=== PATIENT | female | born 1955 ===

== ENCOUNTER 2020-02-21 08:55 | Outpatient (CLI) | payer OTHER, SELFPAY ==
--- NOTE | ~2020-02-21 | DEXA_ITS ---
BMD(1) Young-Adult(2) Age-Matched(3) Region (g/cm2) T-score Z-score WHO Classification L1 1.193 0.4 1.6 Normal L2 1.005 -1.7 -0.5 Osteopenia L3 1.010 -1.7 -0.5 Osteopenia L4 0.893 -2.5 -1.3 Osteoporosis L1-L4 1.012 -1.5 -0.3 Osteopenia Trend: L1-L4 Change vs Change vs Measured Age BMD(1) Baseline Previous Date [age]) (g/cm2) (%) (%) 02[age]21/2020 [age] 1.012 12.2* 12.2* 12[birth year]29/2018 [age] 0.902 baseline - * - Indicates significant change based on 95% confidence interval. 1 - Statistically 68% of repeat scans fall within 1SD (+- 0.010 g/cm2 for AP Spine L1-L4) 2 - [place] (Combined [employer] (ages 20-30) / [employer] (ages 20-40)) AP Spine Reference Population (v112) 3 - Matched for Age, Weight (females 25-100 kg), Ethnic 11 - World Health Organization - Definition of Osteoporosis and Osteopenia for Women: Normal = T-score at or above -1.0 SD; Osteopenia = T-score between -1.0 and -2.5 SD; Osteoporosis = T-score at or below -2.5 SD; (WHO definitions only apply when a young healthy Women reference database is used to determine T-scores.) Printed: 02/21/2020 9:55:17 AM (13.60)76:3.00:50.00:12.0 0.00:12.36 0.60x1.05 22.4:%Fat=26.8% 0.00:0.00 0.00:0.00 Filename: [id number] Scan Mode: Standard;OneScan 37.0 Need [id number] BMD(1) Young-Adult(2,7) Age-Matched(3) Region (g/cm2) T-score Z-score WHO Classification Neck Left 0.689 -2.5 -1.3 Osteoporosis Right 0.652 -2.8 -1.6 Osteoporosis Mean 0.671 -2.6 -1.4 Osteoporosis Difference 0.037 -0.3 -0.3 - Total Left 0.770 -1.9 -1.0 Osteopenia Right 0.731 -2.2 -1.3 Osteopenia Mean 0.750 -2.0 -1.1 Osteopenia Difference 0.039 -0.3 -0.3 - Hip [place] Length Comparison (mm) (Right = 117.8 mm) (Mean = 106.6 mm) (Left = 119.3 mm) Trend: Total Mean Change vs Change vs Measured Age BMD(1) Baseline Previous Date (years) (g/cm2) (%) (%) 02/21/2020 64.5 0.750 -0.4 -0.4 12/29/2018 63.3 0.753 baseline - 1 - Statistically 68% of repeat scans fall within 1SD (+- 0.010 g/cm2 for DualFemur Total) 2 - [place] (Combined [employer]ES (ages 20-30) / [employer] (ages 20-40)) Femur Reference Population (v112) 3 - Matched for Age, Weight (females 25-100 kg), Ethnic 7 - [employer]emur Total T-score difference is 0.3. Asymmetry is None. 11 - World Health Organization - Definition of Osteoporosis and Osteopenia for Women: Normal = T-score at or above -1.0 SD; Osteopenia = T-score between -1.0 and -2.5 SD; Osteoporosis = T-score at or below -2.5 SD; (WHO definitions only apply when a young healthy Women reference database is used to determine T-scores.) Printed: 02/21/2020 9:55:17 AM (13.60); Filename: [id number].dfx; Right Femur; 18.0:%Fat=31.4%; Neck Angle (deg)= 60; Scan Mode: Standard 37.0 uGy; Left Femur; 18.4:%Fat=34.4%; Neck Angle (deg)= 54; Scan Mode: Standard 37.0 uGy [employer] [id number] Dear Karla Lou, Your patient Maria De Jesus Shields completed a BMD test on 02/21/2020 using the [employer] DXA System (analysis version: 13.60) manufactured by [employer]. The following summarizes the results of our evaluation. PATIENT BIOGRAPHICAL: Name: Maria De Jesus Shields
--- NOTE | ~2020-02-21 | MM_ITS ---
EXAMINATION: MM screening dez BI w ruby HISTORY: Screening mammogram TECHNIQUE: Craniocaudal and mediolateral oblique 3-D tomosynthesis images were obtained and synthetic 2-D images were generated. CAD analysis was submitted and interpreted. COMPARISON: 02/15/2019 bilateral diagnostic digital mammogram and bilateral breast ultrasound 02/05/2019, 01/31/2018, 01/27/2017 bilateral digital screening mammogram examinations BREAST PARENCHYMAL COMPOSITION: There are scattered areas of fibroglandular density. FINDINGS: There is no evidence of suspicious mass, calcification, or architectural distortion to sugg est malignancy in either breast. There has been no suspicious interval change. IMPRESSION: 1. No mammographic evidence of malignancy. 2. Recommend routine screening mammography in one year. BI-RADS Category 1: Negative Reviewed, dictated and finalized at location A.
[2020-02-21 10:20] LABS: Alanine Aminotransferase 24 U/L (14-59); Albumin Level 3.9 g/dL (3.4-5.0); Alkaline Phosphatase 89 U/L (46-116); Anion Gap 12.3 mmol/L (7-16); Aspartate Amino Transferase 21 U/L (15-37); Bilirubin,Total 0.3 mg/dL (0.00-1.00); Blood Urea Nitrogen 22 mg/dL (7-18); Carbon Dioxide 31 mmol/L (21-32); Chloride 103 mmol/L (98-108); Estimated Glomerular Filt Rate > 60; Folic Acid 17.4 ng/mL (8.6->20); Free T3 2.34 pg/mL (2.18-3.98); Free T4 Free Thyroxine 0.98 ng/dL (0.76-1.46); Glucose 94 mg/dL (70-99); Osmolality Calculated 297 mOsm/kg (285-295); Phosphorus 2.9 mg/dL (2.6-4.7); Potassium 4.3 mmol/L (3.5-5.1); Sodium 142 mmol/L (136-145); Thyroid Stimulating Hormone 3.33 uIU/mL (0.36-3.74); Total Protein 7.5 g/dL (6.4-8.2); Vitamin B12 410 pg/mL (193-986)
[2020-02-24 05:55] LABS: Thyroid Peroxidase Antibodies <1 IU/mL (<9)
[2020-02-25 11:49] LABS: Parathyroid Intact 88 pg/mL (14-64)
[2020-02-26 20:08] LABS: Vitamin D 25 Hydroxy 58 ng/mL (30-100)
== END 2020-02-21 08:56 | disposition home or self-care (01) ==
LOC: CHSIMG 08:57
PROVIDERS: PCP Nurse Practitioner Family; Visit Provider Internal Medicine Endocrinology, Diabetes & Metabolism
DX: Z12.31 Encounter for screening mammogram for malignant neoplasm of breast (principal); M81.0 Age-related osteoporosis without current pathological fracture; R53.83 Other fatigue
CPT/HCPCS: 36415; 77063; 77067; 77080; 80053; 82306; 82607; 82746; 83970; 84100; 84439; 84443; 84481; 86376

== ENCOUNTER 2020-05-21 06:59 | Outpatient (CLI) | payer OTHER, SELFPAY ==
--- NOTE | ~2020-05-21 | US_ITS ---
US thyroid INDICATION: Nontoxic goiter TECHNIQUE: Real-time sonographic images of the thyroid gland were obtained. COMPARISON: No prior studies for comparison. FINDINGS: The right thyroid lobe measures 4 x 1.1 x 1.2 cm. The left thyroid lobe measures 3 x 1 x 1 cm. There is normal echotexture and echogenicity throughout the thyroid gland. There are small hypoe choic masses of the right thyroid lobe, largest being mixed solid and cystic, hypoechoic, wider than tall, smoothly marginated with macrocalcifications, TR 4, likely benign measuring 5 x 3 x 3 mm. Ping l vascular flow is present. IMPRESSION: 1. Small right thyroid masses, largest measuring up to 5 mm, TR 4, likely benign. Reviewed, dictated and finalized at location A. IMPRESSION: 1. Small right thyroid masses, largest measuring up to 5 mm, TR 4, likely kobi gn.
[2020-05-21 08:31] LABS: Alanine Aminotransferase 23 U/L (14-59); Alkaline Phosphatase 93 U/L (46-116); Anion Gap 5 mmol/L (8-16); Aspartate Amino Transferase 15 U/L (15-37); Bilirubin,Total 0.4 mg/dL (0.00-1.00); Blood Urea Nitrogen 22 mg/dL (7-18); Calcium 9.1 mg/dL (8.5-10.1); Carbon Dioxide 31 mmol/L (21-32); Chloride 105 mmol/L (98-108); Estimated Glomerular Filt Rate > 60; Free T3 2.67 pg/mL (2.18-3.98); Free T4 Free Thyroxine 0.87 ng/dL (0.76-1.46); Glucose 100 mg/dL (70-99); Osmolality Calculated 295 mOsm/kg (285-295); Phosphorus 3.6 mg/dL (2.6-4.7); Potassium 4.2 mmol/L (3.5-5.1); Sodium 141 mmol/L (136-145); Thyroid Stimulating Hormone 3.66 uIU/mL (0.36-3.74); Total Protein 7.6 g/dL (6.4-8.2)
[2020-05-24 16:33] LABS: Parathyroid Intact 81 pg/mL (14-64)
[2020-05-26 05:39] LABS: Thyroid Peroxidase Antibodies <1 IU/mL (<9)
[2020-05-28 21:45] LABS: Vitamin D 25 Hydroxy 67 ng/mL (30-100)
== END 2020-05-21 07:00 | disposition home or self-care (01) ==
PROVIDERS: PCP Nurse Practitioner Family; Visit Provider Internal Medicine Endocrinology, Diabetes & Metabolism
DX: E04.9 Nontoxic goiter, unspecified (principal); M81.0 Age-related osteoporosis without current pathological fracture
CPT/HCPCS: 36415; 76536; 80053; 82306; 83970; 84100; 84439; 84443; 84481; 86376

== ENCOUNTER 2020-10-31 07:30 | Outpatient (CLI) | payer OTHER, SELFPAY ==
[2020-10-31 08:27] LABS: Alanine Aminotransferase 34 U/L (14-59); Albumin Level 3.6 g/dL (3.4-5.0); Alkaline Phosphatase 86 U/L (46-116); Anion Gap 7 mmol/L (8-16); Aspartate Amino Transferase 19 U/L (15-37); Bilirubin,Total 0.4 mg/dL (0.00-1.00); Blood Urea Nitrogen 23 mg/dL (7-18); Calcium 9.1 mg/dL (8.5-10.1); Carbon Dioxide 30 mmol/L (21-32); Chloride 105 mmol/L (98-108); Estimated Glomerular Filt Rate > 60; Free T3 2.35 pg/mL (2.18-3.98); Free T4 Free Thyroxine 0.85 ng/dL (0.76-1.46); Glucose 95 mg/dL (70-99); Osmolality Calculated 297 mOsm/kg (285-295); Phosphorus 3.3 mg/dL (2.6-4.7); Potassium 4.1 mmol/L (3.5-5.1); Sodium 142 mmol/L (136-145); Total Protein 7.1 g/dL (6.4-8.2)
[2020-11-02 22:28] LABS: Vitamin D 25 Hydroxy 48 ng/mL (30-100)
[2020-11-04 14:05] LABS: Thyroid Peroxidase Antibodies <1 IU/mL (<9); Thyroid Stimulating Immunoglob <89 % baseline (<140)
[2020-11-05 12:11] LABS: Parathyroid Intact 81 pg/mL (14-64)
== END 2020-10-31 07:31 | disposition home or self-care (01) ==
LOC: CHSLAB 07:32
PROVIDERS: PCP Nurse Practitioner Family; Visit Provider Internal Medicine Endocrinology, Diabetes & Metabolism
DX: E06.3 Autoimmune thyroiditis (principal); M81.0 Age-related osteoporosis without current pathological fracture
CPT/HCPCS: 36415; 80053; 82306; 83970; 84100; 84439; 84443; 84445; 84481; 86376

== ENCOUNTER 2020-12-26 08:08 | Outpatient (CLI) | payer OTHER, SELFPAY ==
[2020-12-26 09:06] LABS: Free T4 Free Thyroxine 0.98 ng/dL (0.76-1.46); Thyroid Stimulating Hormone 3.09 uIU/mL (0.36-3.74)
[2020-12-26 09:30] LABS: Free T3 2.29 pg/mL (2.18-3.98)
== END 2020-12-26 08:09 | disposition home or self-care (01) ==
LOC: CHSLAB 08:10
PROVIDERS: PCP Nurse Practitioner Family; Visit Provider Internal Medicine Endocrinology, Diabetes & Metabolism
DX: E06.3 Autoimmune thyroiditis (principal)
CPT/HCPCS: 36415; 84439; 84443; 84481

== ENCOUNTER 2021-01-14 09:06 | Emergency (ER) | payer OTHER, SELFPAY ==
--- NOTE | ~2021-01-14 | XR_ITS ---
EXAMINATION: XR elbow LT 2V DATE: 01/14/2021 09:58 INDICATION: Left elbow pain. Fall. TECHNIQUE: 2 views of left elbow were obtained. COMPARISON: None. FINDINGS: Bone alignment is normal. No fracture. Joint spaces are well maintained. There is no elbow joint effusion. IMPRESSION: 1. Normal left elbow. Reviewed, dictated and finalized at location A. IMPRESSION: 1. Normal left elbow.
[2021-01-14 09:15] VITALS: BP 141/69; PULSE 74; RESP 14; TEMP 36.3; O2SAT 97
--- NOTE | 2021-01-14 09:44 | ED.GENADULT ---
HPI - General Adult General Chief complaint: Fall Stated complaint: Fell hit chin and hands Head hurts Time Seen by Provider: 01/14/21 09:08 Source: patient Mode of arrival: ambulatory Limitations: no limitations History of Present Illness HPI narrative: Maria De Jesus is a 65F with a PMH of osteoporosis presented to the ER after a fall while on her morning walk. She was about 2 miles into the walk when she fell and hit her left elbow and chin. She then got up and walked home. She did not lose consciousness, or have any nausea or vomiting. She has no neck pain. Her only concern is the pain and bruise in her left elbow and 1cm chin laceration. Related Data Home Medications Medication Instructions Recorded Confirmed levothyroxine 25 mcg PO DAILY 01/14/21 01/14/21 mirabegron [Myrbetriq] 25 mg PO HS 01/14/21 01/14/21 Allergies Allergy/AdvReac Type Severity Reaction Status Date / Time No Known Allergies Allergy Verified 12/05/19 10:55 Review of Systems Constitutional: Constitutional: Reports no additional constitutional complaints Eyes: Eyes: Reports no additional eye complaints ENT: Reports system reviewed and no additional complaints, except as documented Cardiovascular: Cardiovascular: Reports no additional cardiovascular complaints Respiratory: Respiratory: Reports no additional respiratory complaints Gastrointestinal: Gastrointestinal: Reports no additional gastrointestinal complaints Genitourinary: Genitourinary: Reports no additional female genitourinary complaints Musculoskeletal: Musculoskeletal: Reports as per HPI Integumentary/Breasts: Skin/Breast: Reports as per HPI Neurologic: Reports system reviewed and no additional complaints, except as documented Psychiatric: Psychiatric: Reports no additional psychiatric complaints [facility] Past Medical History Medical History 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 Able to touch her chin to each shoulder, fully flex and extend the neck without any pain Chest: Chest palpation & inspection: normal inspection of the chest Resp: Effort & Inspection: normal respiratory effort Cardio: Rate: regular rate Skin: General skin exam: normal color Rashes: no rashes Other: 1cm linear laceration on the inferior portion of the chin Neuro: General: patient oriented x3 and moves all extremities Extrem: General: normal to inspection Psych: Appearance: grossly normal and well kempt Mental Status: mental status grossly normal Affect: normal affect Attitude: cooperative Thought content: Yes Normal thought content present Course Course Emergency Course: Maria De Jesus declined pain meds. Radiographs were ordered. EXAMINATION: XR elbow LT 2V DATE: 01/14/2021 09:58 INDICATION: Left elbow pain. Fall. TECHNIQUE: 2 views of left elbow were obtained. COMPARISON: None. FINDINGS: Bone alignment is normal. No fracture. Joint spaces are well maintained. There is no elbow joint effusion. IMPRESSION: 1. Normal left elbow. Vital Signs Vital signs: Vital Signs Temperature 97.4 F L 01/14/21 09:15 Pulse Rate 74 01/14/21 09:15 Respiratory Rate 14 01/14/21 09:15 Blood Pressure 141/69 H 01/14/21 09:15 Pulse Oximetry 97 01/14/21 09:15 Temperature 97.4 F L 01/14/21 09:15 Pulse Rate 74 01/14/21 09:15 Respiratory Rate 14 01/14/21 09:15 Blood Pressure 141/69 H 05
--- NOTE | 2021-01-14 10:24 | PC.NURSE ---
PT DENIES PAIN MEDICATION, STATES SHE TOOK 2 TYLENOL BEFORE LEAVING HOME FOR THE ED
[2021-01-14 10:33] VITALS: PULSE 70; RESP 15; O2SAT 100
== END 2021-01-14 10:38 | disposition home or self-care (01) ==
PROVIDERS: Emergency Provider Family Medicine; PCP Nurse Practitioner Family
DX: S01.81XA Laceration without foreign body of other part of head, initial encounter (principal); S50.02XA Contusion of left elbow, initial encounter; W19.XXXA Unspecified fall, initial encounter
CPT/HCPCS: 12011; 73070; 99282; 99283

== ENCOUNTER 2021-01-20 14:02 | Outpatient (CLI) | payer OTHER, SELFPAY ==
--- NOTE | ~2021-01-20 | XR_ITS ---
XR wrist RT 2V 01/20/2021 14:16 Indication: Right wrist pain after recent fall Procedure: 2 views right wrist Comparison: No prior studies for comparison. Findings: Osteopenia. No fracture, subluxation or dislocation. There is anatomic alignment. No foreig n bodies. Impression: 1: No acute bone or joint abnormality. Reviewed, dictated and finalized at location A. Impression: 1: No acute bone or joint abnormality.
== END 2021-01-20 14:03 | disposition home or self-care (01) ==
LOC: CHSIMG 14:04
PROVIDERS: PCP Nurse Practitioner Family; Visit Provider Nurse Practitioner Family
DX: M25.531 Pain in right wrist (principal)
CPT/HCPCS: 73100

== ENCOUNTER 2021-02-23 07:47 | Outpatient (CLI) | payer OTHER, SELFPAY ==
--- NOTE | ~2021-02-23 | MM_ITS ---
EXAMINATION: MM screening dez BI w ruby HISTORY: Screening TECHNIQUE: Craniocaudal and mediolateral oblique 3-D tomosynthesis images were obtained and synthetic 2-D images were generated. CAD analysis was submitted and interpreted. COMPARISON: Comparison to multiple prior studies sequentially, with oldest reviewed study dated 08/2016. BREAST PARENCHYMAL COMPOSITION: There are scattered areas of fibroglandular density. FINDINGS: The right breast is stable without evidence for malignancy. There are developing asymmetrie s in the upper outer quadrant of the left breast. IMPRESSION: 1. Developing left breast asymmetries, upper outer quadrant. 2. Additional mammographic views and possible breast ultrasound are recommended. BI-RADS Category 0: Incomplete: Needs additional imaging evaluation. Reviewed, dictated and finalized at location A. IMPRESSION: 1. Developing left breast asymmetries, upper outer quadrant. 2. Additional mammographic views and possible breast ultrasound are recommended . BI-RADS Category 0: Incomplete: Needs additional imaging evaluation.
== END 2021-02-23 07:48 | disposition home or self-care (01) ==
LOC: CHSIMG 07:48
PROVIDERS: PCP Nurse Practitioner Family; Visit Provider Nurse Practitioner Family
DX: Z12.31 Encounter for screening mammogram for malignant neoplasm of breast (principal)
CPT/HCPCS: 77063; 77067

== ENCOUNTER 2021-02-26 08:27 | Outpatient (CLI) | payer OTHER, SELFPAY ==
--- NOTE | ~2021-02-26 | MMUS_ITS ---
EXAMINATION: MM diagnostic dez LT w ruby, US breast LT complete HISTORY: Follow-up left breast asymmetries. TECHNIQUE: Additional 3-D tomosynthesis images of the left breast were performed and synthetic 2-D im ages were generated. CAD analysis was submitted and interpreted. High resolution complete left breast ultrasound was performed. COMPARISON: 02/23/2021 BREAST PARENCHYMAL COMPOSITION: Breast composed of scattered areas of fibroglandular density. FINDINGS: MAMMOGRAPHIC FINDINGS: Left breast asymmetries are less apparent with spot compression or mediolateral views. No discrete ma ss or architectural distortion is identified. ULTRASOUND: There are multiple cysts of the left breast, largest measuring 4 mm. No suspicious masses to suggest malignancy. IMPRESSION: 1. No evidence for malignancy in the left breast. 2. Routine yearly screening mammogram and regular clinical breast examination are recommended. BI-RADS Category 2: Benign finding(s). Reviewed, dictated and finalized at location A. IMPRESSION: 1. No evidence for malignancy in the left breast. 2. Routine yearly screening mammogram and regular clinical breast examination a re recommended. BI-RADS Category 2: Benign finding(s).
== END 2021-02-26 08:28 | disposition home or self-care (01) ==
LOC: CHSIMG 08:28
PROVIDERS: PCP Nurse Practitioner Family; Visit Provider Nurse Practitioner Family
DX: R92.8 Other abnormal and inconclusive findings on diagnostic imaging of breast (principal)
CPT/HCPCS: 76641; 77061; 77065; G0279

== ENCOUNTER 2021-04-10 07:14 | Outpatient (CLI) | payer OTHER, SELFPAY ==
[2021-04-10 08:48] LABS: Alanine Aminotransferase 28 U/L (14-59); Albumin Level 3.7 g/dL (3.4-5.0); Alkaline Phosphatase 85 U/L (46-116); Anion Gap 9 mmol/L (8-16); Aspartate Amino Transferase 19 U/L (15-37); Bilirubin,Total 0.4 mg/dL (0.00-1.00); Blood Urea Nitrogen 24 mg/dL (7-18); Calcium 8.8 mg/dL (8.5-10.1); Carbon Dioxide 28 mmol/L (21-32); Chloride 107 mmol/L (98-108); Estimated Glomerular Filt Rate > 60; Free T3 2.34 pg/mL (2.18-3.98); Free T4 Free Thyroxine 0.96 ng/dL (0.76-1.46); Glucose 99 mg/dL (70-99); Osmolality Calculated 302 mOsm/kg (285-295); Phosphorus 3.2 mg/dL (2.6-4.7); Potassium 4.3 mmol/L (3.5-5.1); Sodium 144 mmol/L (136-145); Total Protein 7.3 g/dL (6.4-8.2); Vitamin B12 587 pg/mL (193-986)
[2021-04-10 08:50] LABS: Folic Acid > 20.0 ng/mL (8.6->20)
[2021-04-10 09:09] LABS: Thyroid Stimulating Hormone 3.11 uIU/mL (0.36-3.74)
[2021-04-13 14:47] LABS: Vitamin D 25 Hydroxy 80 ng/mL (30-100)
[2021-04-14 00:58] LABS: Thyroid Peroxidase Antibodies <1 IU/mL (<9)
== END 2021-04-10 07:15 | disposition home or self-care (01) ==
LOC: CHSLAB 07:16
PROVIDERS: PCP Nurse Practitioner Family; Visit Provider Internal Medicine Endocrinology, Diabetes & Metabolism
DX: M81.0 Age-related osteoporosis without current pathological fracture (principal); E06.3 Autoimmune thyroiditis
CPT/HCPCS: 36415; 80053; 82306; 82607; 82746; 84100; 84439; 84443; 84481; 86376

== ENCOUNTER 2021-06-29 14:33 | Emergency (ER) | payer OTHER, SELFPAY ==
--- NOTE | ~2021-06-29 | CT_ITS ---
EXAMINATION: CT brain wo con EXAM DATE: 06/29/2021 15:36 INDICATION: Head injury fall today, nasal lacs. TECHNIQUE: Spiral CT of the head was performed without contrast. Axial, coronal and sagittal images were reviewed. The dose-length product (DLP) for this examination was 605.33 mGy-cm. The exposure w as tailored according to patient size, and iterative reconstruction (ASIR) was used as additional dos e reduction technique. There is no prior study for comparison. FINDINGS: Nasal septal and bone fractures. Overlying soft tissue swelling. Laceration and frontal sca lp contusion/hematoma. No underlying calvarial fracture. No extra-axial collections, acute intracrani al hemorrhage, obstructive hydrocephalus, brain mass or evidence of acute infarction. Mild microangio randolph and moderate cerebral atrophy. IMPRESSION: 1. No acute intracranial findings. 2. Nasal bone and septal fractures. 3. Frontal contusion, hematoma, laceration. Reviewed, dictated and finalized at location A.
--- NOTE | ~2021-06-29 | CT_ITS ---
EXAMINATION: CT facial & cervical spine wo EXAM DATE: 06/29/2021 15:37 INDICATION: Facial and neck injury fall today, nasal lacs, no neck pain, in c-collar. TECHNIQUE: Spiral CT of the facial bones was acquired in the axial plane. Coronal reformatted images were also reviewed. Spiral CT of the cervical spine was performed without contrast. Axial images we re reviewed. Coronal and sagittal reformatted images were also reviewed. The dose-length product (DL P) for this examination was 605.33 mGy-cm. The exposure was tailored according to patient size, and iterative reconstruction (ASIR) was used as additional dose reduction technique. There is no prior s tudy for comparison. FINDINGS: FACIAL CT: There are bilateral nasal bone fractures with minimal leftward displacement of the nasal septal complex. Several nasal septal fractures, some buckling. Small amount of blood within the ethmo id sinuses. The maxillary, sphenoid, frontal sinuses are well aerated. There is swelling overlying th e nasal bones, nasal bridge and frontal region of the scalp with small foci of gas indicating lacerat ion. Mastoid air cells are well aerated. The orbits, globes and extraocular muscles are unremarkable . 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 CERVICAL CT: There is no evidence of acute cervical fracture. The odontoid process is intact. Pre-d ens space is normal. Prevertebral soft tissue is normal. There are no soft tissue abnormalities hermelinda ntified. There is no disc space widening or traumatic vertebral body subluxation suspected. Vertebr al body and disc heights are well-maintained. There is advanced left-sided cervical facet arthropat hy. IMPRESSION: 1. Acute nasal septal, bilateral nasal bone fractures with minimal leftward displacement. 2. Nose, frontal scalp contusion, hematoma, laceration. 3. Cervical spondylosis without fracture. Reviewed, dictated and finalized at location A. IMPRESSION: 1. Acute nasal septal, bilateral nasal bone fractures with minimal leftward di splacement. 2. Nose, frontal scalp contusion, hematoma, laceration. 3. Cervical spondylosis without fracture.
--- NOTE | ~2021-06-29 | XR_ITS ---
EXAMINATION: XR knee LT 2V DATE: 06/29/2021 15:38 INDICATION: Left knee pain TECHNIQUE: Two views of the left knee were obtained. COMPARISON: None. FINDINGS: Alignment is normal. No fracture or osteochondral lesion. Joint spaces are normal with no e rosions. No joint effusion/synovitis. Soft tissues are unremarkable. IMPRESSION: 1. No acute osseous abnormality. Reviewed, dictated and finalized at location B.
[2021-06-29 14:40] VITALS: BP 160/110; PULSE 99; RESP 16; TEMP 36.1; O2SAT 99
--- NOTE | 2021-06-29 14:46 | ED.FALL ---
HPI - Fall General Chief Complaint: Fall Stated Complaint: AMB Source: patient, family and EMS Mode of arrival: EMS Limitations: no limitations History of Present Illness HPI Narrative: this is a 65-year-old female that presents after she tripped outdoors on sidewalk and fell injuring her the bridge of her nose and and frontal scalp area, there is some some significant swelling of the nasal bones with some no loss of consciousness no headache no blurry vision no nausea or vomiting, the patient tripped and fell outdoors from a standing position does have some nasal bone pain currently no bleeding no loss of consciousness. complaint: fall Onset (ago): hour(s) Fall from: standing Fall witnessed: yes, by family Place fall occurred: street Loss of consciousness: none Prolonged down time: no Context: tripped/slipped Related Data Home Medications Medication Instructions Recorded Confirmed levothyroxine 25 mcg PO DAILY 01/14/21 01/14/21 mirabegron [Myrbetriq] 25 mg PO HS 01/14/21 01/14/21 Allergies Allergy/AdvReac Type Severity Reaction Status Date / Time No Known Allergies Allergy Verified 01/20/21 13:29 Review of Systems Review of Systems: All systems reviewed & are unremarkable except as noted in HPI and below PMFSH Past Medical History Medical History 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 There is abrasion to the bridge of the nose that was bleeding and is controlled currently Eyes: Conjunctivae: conjunctivae normal Pupils: Equal, round and reactive pupils present EOM: EOMs intact bilaterally Direct Ophthalmoscopy: no photophobia Neck: Neck: normal visual inspection, no lymphadenopathy and no meningeal signs Chest: Chest palpation & inspection: normal inspection of the chest Resp: Effort & Inspection: normal respiratory effort Auscultation: clear to auscultation bilaterally Cardio: Rate: regular rate Rhythm: regular rhythm GI: Auscultation: normal bowel sounds : General: Yes no CVA tenderness Urinary Catheter: Urinary Catheter: patent and draining Skin: Other: abrasion to the bridge of her nose, with abrasions to the right palmar surface of her hand and left knee Neuro: General: patient oriented x3, moves all extremities, no meningeal signs, no focal motor deficits and CN's II-XI intact bilaterally Extrem: General: normal to inspection and no pedal edema Psych: Mental Status: mental status grossly normal Affect: normal affect Course Course Emergency Course: patient received 60 IM Toradol and updated with her vaccine for tetanus, CT scan and blood work were reviewed with patient and family, the patient did have a nasal bone fractures with a septal fracture and current pain is well controlled. Will be sending antibiotic to her pharmacy for the nasal bone fracture, and advised to follow-up with primary care physician for referral to ENT within a week. Critical Care Time Critical Care Time Critical Care Time: No Discharge Plan Discharge Clinical Impression: Abrasion Closed fracture nasal bone Qualifiers: Encounter type: initial encounter Qualified Code(s): S02.2XXA - Fracture of nasal bones, initial encounter for closed fracture Patient Disposition: Home, Self-Care Condition: Stable Instructions: Antibiotic Form, Nasal Fracture (ED), Skin Avulsion (ED) Additional Instructions: take medicine as prescribed, follow-up with primary care azucena
[2021-06-29] MEDS: KETOROLAC (*BKC) 60 MG/2 ML VIAL IM (14:53)
--- NOTE | 2021-06-29 14:56 | PC.NURSE ---
Lab and x-ray notified of orders in.
[2021-06-29 15:27] LABS: Alanine Aminotransferase 30 U/L (14-59); Albumin Level 3.8 g/dL (3.4-5.0); Alkaline Phosphatase 99 U/L (46-116); Anion Gap 9 mmol/L (8-16); Aspartate Amino Transferase 20 U/L (15-37); Bilirubin,Total 0.3 mg/dL (0.00-1.00); Blood Urea Nitrogen 20 mg/dL (7-18); Calcium 9.7 mg/dL (8.5-10.1); Carbon Dioxide 31 mmol/L (21-32); Chloride 104 mmol/L (98-108); Creatine Kinase 187 U/L (26-192); Estimated CRCL calculation 48 ml/min; Estimated Glomerular Filt Rate 60; Glucose 125 mg/dL (70-99); Osmolality Calculated 301 mOsm/kg (285-295); Potassium 3.5 mmol/L (3.5-5.1); Sodium 144 mmol/L (136-145)
--- NOTE | 2021-06-29 15:51 | PC.NURSE ---
Per monet Elmore to remove c-collar.
[2021-06-29] MEDS: TETANUS,DIPHTHERIA,AC PERTUSSIS ADULT 0.5 ML (ADACEL) IM (16:02)
[2021-06-29 16:03] VITALS: BP 148/72; PULSE 76; RESP 16; O2SAT 98
== END 2021-06-29 16:01 | disposition home or self-care (01) ==
PROVIDERS: Emergency Provider Emergency Medicine; PCP Nurse Practitioner Family
DX: S02.2XXA Fracture of nasal bones, initial encounter for closed fracture (principal); W19.XXXA Unspecified fall, initial encounter
CPT/HCPCS: 36415; 70450; 70486; 72125; 73560; 80053; 82550; 90471; 90715; 96372; 99283; J1885; L0150

== ENCOUNTER 2021-09-26 07:27 | Outpatient (CLI) | payer MEDICARE, SELFPAY ==
[2021-09-26 09:03] LABS: Alanine Aminotransferase 31 U/L (14-59); Albumin Level 3.6 g/dL (3.4-5.0); Alkaline Phosphatase 92 U/L (46-116); Anion Gap 8 mmol/L (8-16); Aspartate Amino Transferase 22 U/L (15-37); Bilirubin,Total 0.4 mg/dL (0.00-1.00); Blood Urea Nitrogen 19 mg/dL (7-18); Carbon Dioxide 31 mmol/L (21-32); Chloride 104 mmol/L (98-108); Estimated Glomerular Filt Rate > 60; Free T4 Free Thyroxine 0.93 ng/dL (0.76-1.46); Glucose 100 mg/dL (70-99); Osmolality Calculated 298 mOsm/kg (285-295); Phosphorus 3.2 mg/dL (2.6-4.7); Potassium 4.2 mmol/L (3.5-5.1); Sodium 143 mmol/L (136-145); Thyroid Stimulating Hormone 3.75 uIU/mL (0.36-3.74); Total Protein 7.3 g/dL (6.4-8.2); Vitamin B12 646 pg/mL (193-986)
[2021-09-26 09:09] LABS: Folic Acid > 20.0 ng/mL (8.6->20)
[2021-09-29 14:15] LABS: Vitamin D 25 Hydroxy 93 ng/mL (30-100)
[2021-09-30 01:18] LABS: Thyroid Peroxidase Antibodies <1 IU/mL (<9)
[2021-09-30 13:32] LABS: Parathyroid Intact 49 pg/mL (14-64)
== END 2021-09-26 07:28 | disposition home or self-care (01) ==
LOC: CHSLAB 07:32
PROVIDERS: PCP Nurse Practitioner Family; Visit Provider Internal Medicine Endocrinology, Diabetes & Metabolism
DX: M81.0 Age-related osteoporosis without current pathological fracture (principal); E06.3 Autoimmune thyroiditis
CPT/HCPCS: 36415; 80053; 82306; 82607; 82746; 83970; 84100; 84439; 84443; 84481; 86376

== ENCOUNTER 2021-11-30 15:31 | Outpatient (CLI) | payer MEDICARE, SELFPAY ==
--- NOTE | ~2021-11-30 | XR_ITS ---
EXAMINATION: XR finger 5th LT min 2V DATE: 11/30/2021 15:48 INDICATION: Pain and bruising and swelling at the left fifth finger post injury TECHNIQUE: Dorsal palmar, lateral and 2 oblique views of the left fifth digit were obtained COMPARISON: Left wrist radiograph dated 12/08/2012 FINDINGS: Subtle linear lucency consistent with nondisplaced transverse fracture across the mid diaphysis of th e left fifth middle phalanx. Chronic nonunited ulnar styloid avulsion fracture. Small metallic densit y projecting over the scaphoid fossa the distal radius which may relate to internal fixation of a pre viously seen distal radial fracture which is not included within the [id number]. Joint spaces are normal. Mild soft tissue swelling about the proximal to mid left fifth digit. Diffuse osteopenia. IMPRESSION: 1. Nondisplaced diaphyseal fracture of the left fifth middle phalanx. Reviewed, dictated and finalized at location B.
== END 2021-11-30 15:32 | disposition home or self-care (01) ==
LOC: CHSIMG 15:33
PROVIDERS: PCP Nurse Practitioner Family; Visit Provider Nurse Practitioner Family
DX: S69.92XA Unspecified injury of left wrist, hand and finger(s), initial encounter (principal)
CPT/HCPCS: 73140

== ENCOUNTER 2022-01-14 07:19 | Outpatient (CLI) | payer MEDICARE, SELFPAY ==
[2022-01-14 08:39] LABS: Alanine Aminotransferase 25 U/L (14-59); Albumin Level 3.6 g/dL (3.4-5.0); Alkaline Phosphatase 86 U/L (46-116); Anion Gap 6 mmol/L (8-16); Aspartate Amino Transferase 18 U/L (15-37); Bilirubin,Total 0.4 mg/dL (0.00-1.00); Blood Urea Nitrogen 24 mg/dL (7-18); Calcium 8.8 mg/dL (8.5-10.1); Carbon Dioxide 30 mmol/L (21-32); Chloride 105 mmol/L (98-108); Estimated Glomerular Filt Rate > 60; Free T3 2.51 pg/mL (2.18-3.98); Free T4 Free Thyroxine 0.94 ng/dL (0.76-1.46); Glucose 105 mg/dL (70-99); Osmolality Calculated 296 mOsm/kg (285-295); Potassium 4.1 mmol/L (3.5-5.1); Sodium 141 mmol/L (136-145); Total Protein 7.5 g/dL (6.4-8.2); Vitamin B12 455 pg/mL (193-986)
[2022-01-14 08:43] LABS: Folic Acid > 20.0 ng/mL (8.6->20)
[2022-01-17 04:45] LABS: Thyroid Peroxidase Antibodies <1 IU/mL (<9)
[2022-01-18 13:54] LABS: Parathyroid Intact 68 pg/mL (14-64)
[2022-01-19 20:08] LABS: Vitamin D 25 Hydroxy 111 ng/mL (30-100)
== END 2022-01-14 07:20 | disposition home or self-care (01) ==
LOC: CHSLAB 07:22
PROVIDERS: PCP Nurse Practitioner Family; Visit Provider Internal Medicine Endocrinology, Diabetes & Metabolism
DX: M81.0 Age-related osteoporosis without current pathological fracture (principal); E06.3 Autoimmune thyroiditis
CPT/HCPCS: 36415; 80053; 82306; 82607; 82746; 83970; 84439; 84443; 84481; 86376

== ENCOUNTER 2022-02-22 12:22 | Outpatient (CLI) | payer MEDICARE, SELFPAY ==
--- NOTE | ~2022-02-22 | DEXA_ITS ---
Bone Density Report Name: NAREN LOPEZ Age: 66 Sex: Female Ethnicity: White Date of : 1955 Indication: postmenopausal; screening for osteoporosis; parental hip fracture; height loss; prior fracture; hysterectomy; Referring Provider: Carmine, Karla Temple Study: Bone densitometry was performed. Exam Date: February 22, 2022 Accession number: [id number] Bone Density: Region BMD T-score Z-score Classification AP Spine(L2, L3, L4) 0.772 -2.8 -0.9 Osteoporosis Femoral Neck (Left) 0.556 -2.6 -1.1 Osteoporosis Total Hip (Left) 0.737 -1.7 -0.4 Osteopenia Femoral Neck (Right) 0.538 -2.8 -1.3 Osteoporosis Total Hip (Right) 0.730 -1.7 -0.5 Osteopenia Femoral Neck Mean 0.547 -2.7 -1.2 Osteoporosis Total Hip Mean 0.734 -1.7 -0.5 Osteopenia World Health Organization criteria for BMD impression classify patients as: Normal (T-score at or above -1.0), Osteopenia (T-score between -1.0 and -2.5), or Osteoporosis (T-score at or below -2.5). 10-year Fracture Risk: FRAX not reported because: Some T-score for Spine Total or Hip Total or Femoral Neck at or below -2.5 Treated for osteoporosis Clinical Information Provided by Patient: Has had a low trauma fracture Parent has had a hip fracture Is being treated for osteoporosis Has used the following medications: Actonel (i.e. risedronate), Vitamin D Has the following medical conditions: Hysterectomy Patient maximum height was 65 No regular weight bearing exercise Does not regularly consume dairy products Drinks caffeinated beverages Onset of menses at age 16 Number of children 3 Impression: The patient has established osteoporosis, based on the Total Spine T-score and the existence of a prior fracture. The patient has risk factors, including: parental hip fracture, previous fracture. Discussion: It is important to ask patients whether they are taking their medications and to encourage continued and appropriate compliance with their osteoporosis therapies to reduce fracture risk. It is also important to review their risk factors and encourage appropriate calcium and vitamin D intakes, exercise, fall prevention and other lifestyle measures. Follow-Up: Consider a repeat BMD and Vertebral Fracture Assessment (VFA) exam in 2 years or sooner if medically necessary, to reassess this patient's status. Reported by: Dr. Jones Ledezma on 02/22/2022 12:50:00 PM. Reviewed, dictated and finalized at location A. [facility]
== END 2022-02-22 12:23 | disposition home or self-care (01) ==
PROVIDERS: PCP Nurse Practitioner Family; Visit Provider Internal Medicine Endocrinology, Diabetes & Metabolism
DX: M81.0 Age-related osteoporosis without current pathological fracture (principal); M54.2 Cervicalgia; M54.50 Low back pain, unspecified; E55.9 Vitamin D deficiency, unspecified; Z00.00 Encounter for general adult medical examination without abnormal findings
CPT/HCPCS: 77080

== ENCOUNTER 2022-03-03 08:38 | Outpatient (CLI) | payer MEDICARE, SELFPAY ==
--- NOTE | ~2022-03-03 | MM_ITS ---
EXAMINATION: MM screening [facility] BI w ruby HISTORY: Screening TECHNIQUE: Craniocaudal and mediolateral oblique 3-D tomosynthesis images were obtained and synthetic 2-D images were generated. CAD analysis was submitted and interpreted. COMPARISON: Comparison to multiple prior studies sequentially, with oldest reviewed study dated 12/2017. BREAST PARENCHYMAL COMPOSITION: There are scattered areas of fibroglandular density. FINDINGS: Stable asymmetries in the upper outer quadrant of the left breast, corresponding to benign cysts seen on prior examination. There is no evidence of suspicious mass, calcification, or devops architect ural distortion to suggest malignancy in either breast. There has been no suspicious interval change. IMPRESSION: 1. No mammographic evidence of malignancy. 2. Recommend routine screening mammography in one year. BI-RADS Category 2: Benign finding(s). Reviewed, dictated and finalized at location A.
== END 2022-03-03 08:39 | disposition home or self-care (01) ==
LOC: CHSIMG 08:39
PROVIDERS: PCP Nurse Practitioner Family; Visit Provider Nurse Practitioner Family
DX: Z12.31 Encounter for screening mammogram for malignant neoplasm of breast (principal)
CPT/HCPCS: 77063; 77067

== ENCOUNTER 2022-05-15 07:38 | Outpatient (CLI) | payer MEDICARE, SELFPAY ==
[2022-05-15 08:00] LABS: Hemoglobin A1C 6.3 % (<5.7)
[2022-05-15 08:43] LABS: Alanine Aminotransferase 26 U/L (14-59); Albumin Level 3.8 g/dL (3.4-5.0); Alkaline Phosphatase 83 U/L (46-116); Anion Gap 8 mmol/L (8-16); Aspartate Amino Transferase 20 U/L (15-37); Bilirubin,Total 0.5 mg/dL (0.00-1.00); Blood Urea Nitrogen 25 mg/dL (7-18); Carbon Dioxide 28 mmol/L (21-32); Chloride 104 mmol/L (98-108); Estimated Glomerular Filt Rate > 60; Free T3 2.36 pg/mL (2.18-3.98); Free T4 Free Thyroxine 0.93 ng/dL (0.76-1.46); Glucose 98 mg/dL (70-99); Osmolality Calculated 294 mOsm/kg (285-295); Phosphorus 3.4 mg/dL (2.6-4.7); Potassium 4.1 mmol/L (3.5-5.1); Sodium 140 mmol/L (136-145); Thyroid Stimulating Hormone 2.09 uIU/mL (0.36-3.74); Total Protein 7.1 g/dL (6.4-8.2)
[2022-05-18 01:58] LABS: Insulin Level Total 2.6 uIU/mL (<=19.6); Thyroid Peroxidase Antibodies <1 IU/mL (<9)
[2022-05-18 21:55] LABS: Parathyroid Intact 71 pg/mL (14-64)
[2022-05-19 17:17] LABS: Vitamin D 25 Hydroxy 103 ng/mL (30-100)
== END 2022-05-15 07:39 | disposition home or self-care (01) ==
LOC: CHSLAB 07:40
PROVIDERS: PCP Nurse Practitioner Family; Visit Provider Internal Medicine Endocrinology, Diabetes & Metabolism
DX: M81.0 Age-related osteoporosis without current pathological fracture (principal); E06.3 Autoimmune thyroiditis; R73.01 Impaired fasting glucose
CPT/HCPCS: 36415; 80053; 82306; 83036; 83525; 83970; 84100; 84439; 84443; 84481; 86376

== ENCOUNTER 2022-06-11 10:15 | Outpatient (CLI) | payer MEDICARE, SELFPAY ==
--- NOTE | ~2022-06-11 | XR_ITS ---
EXAMINATION: XR shoulder LT min 2V INDICATION: Left shoulder pain TECHNIQUE: Four views of the left shoulder are submitted. COMPARISON: None FINDINGS: Normal alignment. No fracture. There is mild osteoarthritis of the acromioclavicular and gl enohumeral joints. Soft tissues are unremarkable. IMPRESSION: 1. No acute osseous abnormality. Reviewed, dictated and finalized at location F.
== END 2022-06-11 10:16 | disposition home or self-care (01) ==
LOC: CHSIMG 10:17
PROVIDERS: PCP Nurse Practitioner Family; Visit Provider Nurse Practitioner Family
DX: M25.512 Pain in left shoulder (principal)
CPT/HCPCS: 73030

== ENCOUNTER 2022-12-03 07:19 | Outpatient (CLI) | payer MEDICARE, SELFPAY ==
[2022-12-03 08:07] LABS: Hemoglobin A1C 6.1 % (<5.7)
[2022-12-03 08:23] LABS: Alanine Aminotransferase 28 U/L (14-59); Albumin Level 3.7 g/dL (3.4-5.0); Alkaline Phosphatase 83 U/L (46-116); Anion Gap 8 mmol/L (8-16); Aspartate Amino Transferase 21 U/L (15-37); Bilirubin,Total 0.5 mg/dL (0.00-1.00); Blood Urea Nitrogen 20 mg/dL (7-18); Calcium 9.1 mg/dL (8.5-10.1); Carbon Dioxide 33 mmol/L (21-32); Chloride 104 mmol/L (98-108); Estimated Glomerular Filt Rate > 60; Free T4 Free Thyroxine 0.96 ng/dL (0.76-1.46); Glucose 98 mg/dL (70-99); Osmolality Calculated 302 mOsm/kg (285-295); Phosphorus 3.6 mg/dL (2.6-4.7); Potassium 3.9 mmol/L (3.5-5.1); Sodium 145 mmol/L (136-145); Thyroid Stimulating Hormone 3.46 uIU/mL (0.36-3.74); Total Protein 7.8 g/dL (6.4-8.2)
[2022-12-04 06:42] LABS: Free T3 2.67 pg/mL (2.18-3.98)
[2022-12-07 13:16] LABS: Insulin Level Total 2.9 uIU/mL (<=19.6)
[2022-12-07 19:25] LABS: Vitamin D 25 Hydroxy 91 ng/mL (30-100)
[2022-12-08 16:09] LABS: Parathyroid Intact 68 pg/mL (14-64)
== END 2022-12-03 07:20 | disposition home or self-care (01) ==
PROVIDERS: PCP Nurse Practitioner Family; Visit Provider Internal Medicine Endocrinology, Diabetes & Metabolism
DX: R73.01 Impaired fasting glucose (principal); E06.3 Autoimmune thyroiditis; M81.0 Age-related osteoporosis without current pathological fracture
CPT/HCPCS: 36415; 80053; 82306; 83036; 83525; 83970; 84100; 84439; 84443; 84481

== ENCOUNTER 2023-02-26 07:25 | Outpatient (CLI) | payer MEDICARE, SELFPAY ==
[2023-02-26 08:41] LABS: Alanine Aminotransferase 27 U/L (14-59); Albumin Level 3.6 g/dL (3.4-5.0); Alkaline Phosphatase 78 U/L (46-116); Anion Gap 6 mmol/L (8-16); Aspartate Amino Transferase 17 U/L (15-37); Bilirubin,Total 0.4 mg/dL (0.00-1.00); Blood Urea Nitrogen 24 mg/dL (7-18); Calcium 8.9 mg/dL (8.5-10.1); Carbon Dioxide 30 mmol/L (21-32); Chloride 104 mmol/L (98-108); Estimated Glomerular Filt Rate > 60; Free T3 2.36 pg/mL (2.18-3.98); Free T4 Free Thyroxine 0.93 ng/dL (0.76-1.46); Glucose 98 mg/dL (70-99); Osmolality Calculated 294 mOsm/kg (285-295); Phosphorus 3.3 mg/dL (2.6-4.7); Potassium 4.3 mmol/L (3.5-5.1); Sodium 140 mmol/L (136-145); Thyroid Stimulating Hormone 3.66 uIU/mL (0.36-3.74); Total Protein 7.1 g/dL (6.4-8.2)
[2023-03-02 16:33] LABS: Insulin Level Total 3.1 uIU/mL (<=19.6)
[2023-03-02 17:54] LABS: Parathyroid Intact 77 pg/mL (14-64)
[2023-03-02 19:53] LABS: Vitamin D 25 Hydroxy 90 ng/mL (30-100)
== END 2023-02-26 07:26 | disposition home or self-care (01) ==
LOC: CHSLAB 07:27
PROVIDERS: PCP Nurse Practitioner Family; Visit Provider Internal Medicine Endocrinology, Diabetes & Metabolism
DX: M81.0 Age-related osteoporosis without current pathological fracture (principal); E06.3 Autoimmune thyroiditis; R73.01 Impaired fasting glucose
CPT/HCPCS: 36415; 80053; 82306; 83036; 83525; 83970; 84100; 84439; 84443; 84481

== ENCOUNTER 2023-03-07 07:50 | Outpatient (CLI) | payer MEDICARE, SELFPAY ==
--- NOTE | ~2023-03-07 | MM_ITS ---
EXAMINATION: MM screening [facility] BI w ruby HISTORY: Screening mammogram TECHNIQUE: Craniocaudal and mediolateral oblique 3-D tomosynthesis images were obtained and synthetic 2-D images were generated. CAD analysis was submitted and interpreted. COMPARISON: 03/03/2022, 02/26/2021, 02/15/2021, 02/21/2020 BREAST PARENCHYMAL COMPOSITION:The breasts are heterogeneously dense, which may obscure small masses. FINDINGS: No suspicious mass, calcification, or architectural distortion are identified in either padmini ast to suggest malignancy. There has been no suspicious interval change. IMPRESSION: No mammographic evidence of malignancy. Recommend routine screening mammography in one year. BI-RADS Category 1: Negative Reviewed, dictated and finalized at location .
== END 2023-03-07 07:51 | disposition home or self-care (01) ==
LOC: CHSIMG 07:53
PROVIDERS: PCP Nurse Practitioner Family; Visit Provider Nurse Practitioner Family
DX: Z12.31 Encounter for screening mammogram for malignant neoplasm of breast (principal)
CPT/HCPCS: 77063; 77067

== ENCOUNTER 2023-05-28 09:14 | Outpatient (CLI) | payer MEDICARE, SELFPAY ==
[2023-05-28 10:29] LABS: Alanine Aminotransferase 25 U/L (14-59); Albumin Level 3.8 g/dL (3.4-5.0); Alkaline Phosphatase 76 U/L (46-116); Anion Gap 9 mmol/L (8-16); Aspartate Amino Transferase 20 U/L (15-37); Bilirubin,Total 0.5 mg/dL (0.00-1.00); Blood Urea Nitrogen 19 mg/dL (7-18); Calcium 9.4 mg/dL (8.5-10.1); Carbon Dioxide 28 mmol/L (21-32); Chloride 106 mmol/L (98-108); Estimated Glomerular Filt Rate > 60; Free T4 Free Thyroxine 1.06 ng/dL (0.76-1.46); Glucose 99 mg/dL (70-99); Osmolality Calculated 298 mOsm/kg (285-295); Potassium 4.2 mmol/L (3.5-5.1); Sodium 143 mmol/L (136-145); Total Protein 7.1 g/dL (6.4-8.2)
[2023-06-01 19:45] LABS: Parathyroid Intact 77 pg/mL (14-64)
[2023-06-04 22:50] LABS: Vitamin D 25 Hydroxy 87 ng/mL (30-100)
== END 2023-05-28 09:15 | disposition home or self-care (01) ==
LOC: CHSLAB 09:17
PROVIDERS: PCP Nurse Practitioner Family; Visit Provider Internal Medicine
DX: E06.3 Autoimmune thyroiditis (principal); M81.0 Age-related osteoporosis without current pathological fracture
CPT/HCPCS: 36415; 80053; 82306; 83970; 84439; 84443

== ENCOUNTER 2023-05-31 07:54 | Outpatient (CLI) | payer MEDICARE, SELFPAY ==
[2023-05-31 08:23] LABS: Creatinine 24 Hour Urine 0.63 g/24 hr (0.60-1.80); Total Volume 24 Hour Urine 2750 ml
[2023-06-08 07:59] LABS: Total Volume 2750 mL; Urine Calcium 7.9 mg/dL
== END 2023-05-31 07:55 | disposition home or self-care (01) ==
LOC: CHSLAB 07:57
PROVIDERS: PCP Nurse Practitioner Family; Visit Provider Internal Medicine
DX: E06.3 Autoimmune thyroiditis (principal); M81.0 Age-related osteoporosis without current pathological fracture
CPT/HCPCS: 81050; 82340; 82570

== ENCOUNTER 2023-06-01 09:33 | Outpatient (CLI) | payer MEDICARE, SELFPAY ==
--- NOTE | ~2023-06-01 | US_ITS ---
Thyroid ultrasound. Clinical History: Autoimmune thyroiditis COMPARISON: 05/21/2020 Findings: Real-time sonography of the thyroid gland was performed. The right lobe measures 3.6 x 1.2 x 1.5 cm. The left lobe measures 2.8 x 1.0 x 1.2 cm. The isthmus is 3 mm in AP diameter. There is a 5 mm cystic nodule in the right mid lobe with small hyperechoic colloid components. Impression: Small cystic nodule in the right middle lobe is essentially unchanged from prior exam.. Reviewed, dictated and finalized at location M. Impression: Small cystic nodule in the right middle lobe is essentially unchanged from prio r exam..
--- NOTE | ~2023-06-01 | DEXA_ITS ---
Bone Density Report Name: NAREN LOPEZ Age: 67 Sex: Female Ethnicity: White Date of : 1955 Indication: postmenopausal; screening for osteoporosis; parental hip fracture; height loss; prior fracture; hysterectomy; Referring Provider: ARNAV MALIK Study: Bone densitometry was performed. Exam Date: June 01, 2023 Accession number: [id number] Bone Density: Region BMD T-score Z-score Classification AP Spine(L2, L3, L4) 0.861 -2.0 0.0 Osteopenia Femoral Neck (Left) 0.598 -2.3 -0.7 Osteopenia Total Hip (Left) 0.796 -1.2 0.1 Osteopenia Femoral Neck (Right) 0.541 -2.8 -1.2 Osteoporosis Total Hip (Right) 0.741 -1.6 -0.3 Osteopenia Femoral Neck Mean 0.569 -2.5 -0.9 Osteoporosis Total Hip Mean 0.768 -1.4 -0.1 Osteopenia World Health Organization criteria for BMD impression classify patients as: Normal (T-score at or above -1.0), Osteopenia (T-score between -1.0 and -2.5), or Osteoporosis (T-score at or below -2.5). 10-year Fracture Risk: FRAX not reported because: Some T-score for Spine Total or Hip Total or Femoral Neck at or below -2.5 Treated for osteoporosis Clinical Information Provided by Patient: Has had a low trauma fracture Parent has had a hip fracture Is being treated for osteoporosis Has used the following medications: Actonel (i.e. risedronate), Vitamin D, Calcium Has the following medical conditions: Hysterectomy Patient maximum height was 65 Menopause Age: 51 No regular weight bearing exercise Does not regularly consume dairy products Drinks caffeinated beverages Onset of menses at age 16 Number of children 3 Impression: The patient has established osteoporosis, based on the Right Femoral Neck T-score and the existence of a prior fracture. The patient has risk factors, including: parental hip fracture, previous fracture. Discussion: It is important to ask patients whether they are taking their medications and to encourage continued and appropriate compliance with their osteoporosis therapies to reduce fracture risk. It is also important to review their risk factors and encourage appropriate calcium and vitamin D intakes, exercise, fall prevention and other lifestyle measures. Follow-Up: Consider a repeat BMD and Vertebral Fracture Assessment (VFA) exam in 2 years or sooner if medically necessary, to reassess this patient's status. Reported by: Dr. Tony Bush on 06/01/2023 10:00:00 AM. Reviewed, dictated and finalized at location A.
== END 2023-06-01 09:34 | disposition home or self-care (01) ==
LOC: CHSIMG 09:35
PROVIDERS: PCP Nurse Practitioner Family; Visit Provider Internal Medicine
DX: M81.0 Age-related osteoporosis without current pathological fracture (principal); E06.3 Autoimmune thyroiditis; M85.89 Other specified disorders of bone density and structure, multiple sites; E04.1 Nontoxic single thyroid nodule
CPT/HCPCS: 76536; 77080

== ENCOUNTER 2023-12-09 12:02 | Outpatient (CLI) | payer MEDICARE, SELFPAY ==
[2023-12-09 14:37] LABS: Hemoglobin A1C 5.8 % (<5.7)
[2023-12-09 14:53] LABS: Free T4 Free Thyroxine 1.18 ng/mL (0.78-2.19)
== END 2023-12-09 12:03 | disposition home or self-care (01) ==
PROVIDERS: Internal Medicine; PCP Nurse Practitioner Family; Visit Provider Internal Medicine Hematology & Oncology
DX: R73.03 Prediabetes (principal); E03.9 Hypothyroidism, unspecified; E06.3 Autoimmune thyroiditis
CPT/HCPCS: 36415; 83036; 84439; 84443

== ENCOUNTER 2024-02-21 07:55 | Outpatient (RCR) | payer MEDICARE, SELFPAY ==
--- NOTE | 2024-02-21 09:27 | OPREHPOC ---
Outpatient Therapy Plan of Care This is a Multidisciplinary Plan of Care that may contain components documented by all disciplines (PT, OT, and ST.) PT Problem 1 PT Problem #1 Knowledge Deficit PT Goal 1 Goal 1. independent and compliant with HEP and pre- position change routine Target Visit 4 PT Problem 2 PT Problem #2 Impaired Balance PT Goal 1 Goal 1. tinetti to display moderate fall risk or less 2. TUG to be completed without symptoms of dizziness in 15 seconds or less 3. patient to complete 5 x sit to stand test without symptoms of dizziness in less than 15 seconds Target Visit 9 PT Problem 3 PT Problem #3 Impaired Functional Mobil PT Goal 1 Goal 1. DHI to display 10% or less functional deficits 2. patient to complete 6 minute walk test with cane or AD with improved mechanics for 700ft or more 3. patient to report no more than 1 episode of dizziness in the last week. Target Visit 9
--- NOTE | 2024-02-21 09:27 | PTOPEVAL1 ---
Assessment and note entered by JT File, PT Evaluation Information Assessment Status Evaluation Diagnosis dizziness and giddiness Onset 02/15/24 Subjective Information patient reports when she wakes up she gets up real fast and she is dizzy. she reports she also recently noticed it at the dentist and found that when coming up from laying on her back she was really dizzy. 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 she reports she also has some symptoms when laying down and moving her head to the side quickly. she reports her symptoms will last more than 1 minute . she reports she is taking metformin and levothyroxine. she reports she does not take baby aspirin, and does not take any blood pressure meds . she also does not take any cholesterol medication. she reports she does have a cane, but she uses is infrequently. she reports when her symptoms come on it feels like the room is spinning around her. she reports she does not feel like she is going to pass out. Reported Pain Level Pain Score 0: Self Report Assessment PT Clinical Summary mrs. shannon is a 68 yo woman who presents to skilled PT services for dizziness with position changes. she reports symptoms when transitioning from supine to sitting and standing. she is negative for BPPV testing and POTS testing today. however, she nearly displays positive testing for orthostatic hypotension. in addition, she displays abnormal gait mechanics and a high fall risk. she would benefit from continued skilled PT services to address her orthostasis issues, balance deficits, and improved her safety with position changes and standing/ambulation to prevent future falls/injuries. Plan of Care Interventions Gait Training,Neuro Re-education,Patient/Caregiver Educati,Therapeutic Activities,Therapeutic Exercise PT Services Indicated Yes Treatment Frequency and 3x weekly for 9 visits Duration These treatments will address the objective and functional deficits as defined above. The patient will be advanced safely and appropriately in order for the patient to progress towards his/her prior level of function. Additional exercises will be introduced and as well as a comprehensive home exercise program upon discharge, if needed, ?to ensure carryover of functional gains achieved in the clinic. This treatment plan has been reviewed and agreement upon by the patient.
== END 2024-03-21 10:09 | disposition home or self-care (01) ==
LOC: CHSPT 07:55
PROVIDERS: Visit Provider Nurse Practitioner Family
DX: R42 Dizziness and giddiness (principal)
CPT/HCPCS: 97110; 97112; 97161; 97530

== ENCOUNTER 2024-03-19 12:53 | Outpatient (CLI) | payer MEDICARE, SELFPAY ==
--- NOTE | ~2024-03-19 | MM_ITS ---
EXAMINATION: MM screening [facility] BI w ruby HISTORY: Screening TECHNIQUE: Craniocaudal and mediolateral oblique 3-D tomosynthesis images were obtained and synthetic 2-D images were generated. CAD analysis was submitted and interpreted. COMPARISON: No prior mammogram is available for comparison at this institution. BREAST PARENCHYMAL COMPOSITION: FINDINGS: Stable asymmetries in the upper aspect of the left breast on MLO view. There is no evidence of suspicious mass, calcification, or architectural distortion to suggest malignancy in either breas t. There has been no suspicious interval change. IMPRESSION: 1. No mammographic evidence of malignancy. 2. Recommend routine screening mammography in one year. BI-RADS Category 1: Negative Reviewed, dictated and finalized at location B.
== END 2024-03-19 12:54 | disposition home or self-care (01) ==
LOC: CHSIMG 12:54
PROVIDERS: PCP Nurse Practitioner Family; Visit Provider Nurse Practitioner Family
DX: Z12.31 Encounter for screening mammogram for malignant neoplasm of breast (principal)
CPT/HCPCS: 77063; 77067

== ENCOUNTER 2024-04-07 09:03 | Emergency (ER) | payer MEDICARE, SELFPAY ==
[2024-04-07 09:05] VITALS: BP 128/68; PULSE 64; RESP 20; TEMP 37.1; O2SAT 98
--- NOTE | 2024-04-07 09:13 | ED.ANIMALBIT ---
HPI - Animal Bite General Chief Complaint: Animal Bite Stated Complaint: dog bite Time Seen by Provider: 04/07/24 09:12 Source: patient Mode of arrival: ambulatory Limitations: no limitations History of Present Illness HPI narrative: 68 YEARS OLD WHITE FEMALE CAME TO THE EMERGENCY ROOM WITH A LITTLE ABRASION AT THE BACK OF HER RIGHT LOWER LEG POSSIBLE DOG RELATED. PATIENT IS NOT SURE IF SHE GOT BITTEN BY THE DOG OR GET SCRATCH BY SOMETHING. UNKNOWN LAST TETANUS SHOT, NO OTHER INJURIES, NO PAIN. Related Data Home Medications Medication Instructions Recorded Confirmed mirabegron 25 mg tablet,extended 25 mg PO HS 01/14/21 10/10/23 release 24 hr (Myrbetriq) multivitamin 1 tablet PO DAILY 07/01/21 10/10/23 denosumab 60 mg/mL subcutaneous 60 mg subcut [id number] 05/26/23 10/10/23 syringe (Prolia) calcium 1200 BYIAUTH 09/28/23 10/10/23 cholecalciferol (vitamin D3) 25 25 mcg PO DAILY 09/28/23 10/10/23 mcg (1,000 unit) capsule cranberry gummies BYIAUTH 09/28/23 10/10/23 melatonin PO 09/28/23 10/10/23 [id number] 5 mg-zeaxanth cap PO 09/28/23 10/10/23 1 mg-bilberry 7.5 mg-herbal capsule (Macular Health Formula) Allergies Allergy/AdvReac Type Severity Reaction Status Date / Time Darvocet A500 Allergy Intermediate Unknown Uncoded 03/29/24 12:57 Review of Systems Review of Systems: All systems reviewed & are unremarkable except as noted in HPI and below PMFSH Past Medical History Medical History 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 Anxiety Hx of cervical cancer 1997 Osteoporosis Prediabetes Surgical History Surgical History Hx of hysterectomy 12/25/1997 Family History Family History Father Acute myocardial infarction Mother Familial Alzheimer's disease of late onset Social History Social History Smoking status: Never smoker Alcohol intake: never Substance use: never Do You Feel Safe in your Home?: Yes Lack of Transportation: No Lack of Food: Never True Current Housing: Decline to Answer Concerned About Future Housing: Decline to Answer Difficulty Paying Gas/Electric Bills: No Difficulty Paying for Meds: No Currently Unemployed: Decline to Answer Education: High School Diploma/GED Difficulty w/ Childcare or Family Care: No Exam Narrative: GENERAL APPEARANCE: WELL-DEVELOPED, WELL-NOURISHED SKIN: NORMAL COLOR , 2 MM ABRASION AT THE BACK OF THE RIGHT FOOT, NO ACTIVE BLEEDING. VASCULAR: NORMAL PERIPHERAL PULSES, NORMAL CAPILLARY REFILL. MUSCULOSKELETAL: NORMAL RANGE OF MOTION, NONTENDER BACK NEUROLOGIC: ALERT AND ORIENTED ?3, AOC AIRSPACE CONTROL OFFICER IS NORMAL TESTED, NO GROSS MOTOR DEFICIT MDM - Animal Bite MDM Narrative Medical decision making narrative: PATIENT WAS INTERACTING WITH 2 DOGS A BARKING AT HER. LATER NOTICED LITTLE ABRASION AT THE BACK OF THE RIGHT FOOT NOT SURE IS A BITE OR SOMETHING ELSE PHYSICAL EXAMINATION SHOWED ABRASION MORE LIKELY, ADACEL WAS GIVEN, WASH WITH WARM WATER AND SOAP, TOPICAL NEOSPORIN. DISCHARGE THE PT WAS DISCHARGED TO HOME.THE PT,S CONDITION UPON DISCHARGE WAS FAIR,EDUCATION WAS PROVIDED TO THE PT IN REFERENCE TO THE FINAL IMPRESSION,DISCHARGE STUDY RESULTS,TREATMENT,PROGNOSIS AND NEED FOR FOLLOW UP . Critical Care Time Critical Care Time Critical Care Time: No Discharge Plan Discharge Clinical Impression: Abrasion hip/leg Patient Disposition: Home, Self-Care Condition: Stable Instructions: Abrasion (ED) Additional I
[2024-04-07] MEDS: TETANUS,DIPHTHERIA,AC PERTUSSIS ADULT 0.5 ML (ADACEL) IM (09:29)
== END 2024-04-07 09:40 | disposition home or self-care (01) ==
PROVIDERS: Emergency Provider Emergency Medicine
DX: S80.811A Abrasion, right lower leg, initial encounter (principal); Z23 Encounter for immunization; X58.XXXA Exposure to other specified factors, initial encounter
CPT/HCPCS: 90471; 90715; 99282

== ENCOUNTER 2024-08-31 08:49 | Outpatient (CLI) | payer MEDICARE, SELFPAY ==
[2024-08-31 10:01] LABS: Alanine Aminotransferase 30 U/L (14-59); Albumin Level 3.7 g/dL (3.4-5.0); Alkaline Phosphatase 93 U/L (46-116); Anion Gap 7 mmol/L (4-12); Aspartate Amino Transferase 21 U/L (15-37); Bilirubin,Total 0.5 mg/dL (0.00-1.00); Blood Urea Nitrogen 25 mg/dL (7-18); Calcium 9.1 mg/dL (8.5-10.1); Carbon Dioxide 31 mmol/L (21-32); Chloride 104 mmol/L (98-108); Estimated Glomerular Filt Rate > 60; Free T4 Free Thyroxine 0.85 ng/dL (0.76-1.46); Glucose 96 mg/dL (70-99); Osmolality Calculated 298 mOsm/kg (285-295); Potassium 4.2 mmol/L (3.5-5.1); Sodium 142 mmol/L (136-145); Thyroid Stimulating Hormone 3.66 uIU/mL (0.36-3.74); Total Protein 7.1 g/dL (6.4-8.2)
[2024-09-01 11:24] LABS: Parathyroid Intact 56 pg/mL (16-77)
== END 2024-08-31 08:50 | disposition home or self-care (01) ==
LOC: CHSLAB 08:51
PROVIDERS: PCP Nurse Practitioner Family; Visit Provider Internal Medicine
DX: E03.9 Hypothyroidism, unspecified (principal); E06.3 Autoimmune thyroiditis; R73.03 Prediabetes; E04.1 Nontoxic single thyroid nodule
CPT/HCPCS: 36415; 80053; 83970; 84439; 84443

== ENCOUNTER 2024-09-07 07:51 | Outpatient (CLI) | payer MEDICARE, SELFPAY ==
--- NOTE | ~2024-09-07 | US_ITS ---
US thyroid INDICATION: Hypothyroidism TECHNIQUE: Real-time sonographic images of the thyroid gland were obtained. COMPARISON: Comparison to multiple prior studies sequentially, with oldest reviewed study dated 05/21. FINDINGS: The right thyroid lobe measures 4.3 x 1.1 x 1.1 cm. The left thyroid lobe measures 3.1 x 1 .1 x 0.8 cm. There are small cysts in the right thyroid gland, largest measuring 5 mm without signifi cant change from prior studies. There is normal echotexture and echogenicity throughout the thyroid g land. No discrete nodules identified. Normal vascular flow is present. IMPRESSION: 1. Stable thyroid ultrasound. Small benign appearing cysts in the right thyroid lobe are not signifi cantly changed.. Reviewed, dictated and finalized at location B. HER OPERATOR IMPRESSION: 1. Stable thyroid ultrasound. Small benign appearing cysts in the right thyroi d lobe are not significantly changed..
== END 2024-09-07 07:52 | disposition home or self-care (01) ==
LOC: CHSIMG 07:52
PROVIDERS: PCP Nurse Practitioner Family; Visit Provider Internal Medicine
DX: E06.3 Autoimmune thyroiditis (principal); R73.03 Prediabetes; E04.1 Nontoxic single thyroid nodule; E03.9 Hypothyroidism, unspecified
CPT/HCPCS: 76536

== ENCOUNTER 2024-10-12 08:15 | Outpatient (CLI) | payer MEDICARE, SELFPAY ==
--- OUTSIDE RECORDS SUMMARY | 2024-10-12 08:21 | XMS_ITS | Clinical Summary ---
Author Organization [facility] Address [facility] [place] [address] Care Team Providers Care Basket Weaver Name Role Phone Liu Bui MD Primary Care Provider [phone] Allergies No known active allergies Medications alendronate 70 MG tablet Take 1 tablet by mouth weekly. 03/05/2019 Active Calcium-Vitamin D 500-125 MG-UNIT Tab Take 2 tablets by mouth daily. Active Multiple Vitamins-Minera ls (MACULAR VITAMIN BENEFIT) Tab Take 1 tablet by mouth daily. Active diclofenac EC 50 MG tablet Take 50 mg by mouth 3 (three) times daily. 0 02/26/2019 Active Active Problems Problem Noted Date Diagnosed Date Closed traumatic nondisplace d fracture of left patella with routine healing 03/07/2019 Family History Medical History Relation Comments [place] Brother Heart Disease Father Hypertension Father [place] Father Anxiety Mother Hypertension Mother Thyroid Mother Relation Status Comments Brother Father Mother Social History Tobacco Use Types Packs/Day Years Used Date Smoking Tobacco: Former Cigarettes 0.5 4 1 986 - 1990 Smokeless Tobacco: Never Alcohol Use Standard Drinks/Week Comments No 0 (1 standard drink = 0.6 oz pur e alcohol) AUDIT-C Answer Date Recorded Frequency of Alcohol Consumption Never 03/07/2019 Average Number of Drinks Not on file 019 Frequency of Binge Drinking Not on file 02/26 Comments Unknown Sex and Gender Information Value Date Recorded Sex Assigned at Not on file Legal Sex Female 10:40 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 Gender Identity Not on file Sexual Orientation Not on file Last Filed Vital Signs Vital Sign Reading Time Taken Comments Blood Pressure - - Pulse - - Temperature - - Respiratory Rate - - Oxygen Saturation - - Inhaled Oxygen Concentration - - Weight 67.6 kg (149 lb) 03/07/2019 10:13 AM CDT Height 162.6 cm (5' 4 ) 03/07/2019 10:13 AM CDT Body Mass Index 25.58 03/07/2019 10:13 AM CDT Plan of Treatment Health Maintenance Due Date Last Done Comments Colorectal Cancer Screening Colonoscopy (10 Years) 1955 Hepatitis C 1974 DTaP, Tdap and Td Vaccines ( 1 - Tdap) 1975 Mammogram Screening 1996 Zoster Vaccines (1 of 2) 2006 Dexa Scan (General) 2021 Pneumococcal Vaccine: 65+ Ye ars (1 of 1 - PCV) 2021 COVID-19 Vaccine ( - 2023-2 5 season) 2024 Influenza Adult (#1) 2024 RSV Immunization or 60+ Years (1 - 1-dose 75+ series) 2031 Meningococcal B Vaccine Aged Out No l onger eligible based on patient's age to complete this topic Meningococcal Vaccine Aged Out No raheem mary eligible based on patient's age to complete this topic RSV Immunizations Under 20 Months Aged Out No longer eligible based on patient's age to complete this topic Insurance GENERIC - THIRD [employer] Care Teams Basket Weaver Relationship Specialty Start Date End Date Liu Bui MD [address] [place] [address] PCP - General FAMILY PRACTICE 03/06/19
--- OUTSIDE RECORDS SUMMARY | 2024-10-12 08:21 | XMS_ITS | Referral Summary ---
Author Organization [facility] Address [address] [facility] [place] [address] Care Team Providers Care Senior Instructor Name Role Phone Simón Clay MD Primary Care Provider [phone] Source Comments [facility],non-owned Affiliates and Associated Physician Practices is amultiple site organization consisting of ambulatory clinics and hospital sitesin [place], [place], [place] and [place]. This disclosure is being madepursuant to the Care Everywhere program and may not contain all information available regarding this patient. Last updated 18.[facility] Allergies No known active allergies Medications * Be aware that medications may not be up to date on this document. Alwaysverify current medications with the patient. Medication Sig Dispensed Refills Start Date End Date Status Multiple Vitamins-Minerals (MACULAR VITAMIN BENEFIT) TABSIndications:Gait difficulty,Bilateral leg weakness,ALD (adrenoleukodystrophy) (HCC),Spastic gait Take 1 tablet by mouth once daily Active CALCIUM-VITAMIN D POIndications:Gait difficulty,Bilateral leg weakness,ALD (adrenoleukodystrophy) (HCC),Spastic gait Take 2 tablets by mouth once daily Active Multiple Vitamins-Minerals (MULTIVITAMIN ADULT PO)Indications:Gait difficulty,Bilateral leg weakness,ALD (adrenoleukodystrophy) (HCC),Spastic gait Take 1 tablet by mouth once daily Active Active Problems Problem Noted Date Diagnosed Date Gait difficulty 06/23/2017 Bilateral leg weakness 06/23/2017 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 Spastic gait 06/23/2017 Social History Tobacco Use Types Packs/Day Years Used Date Smoking Tobacco: Former Cigarettes Q uit: 08/29/1996 Smokeless Tobacco: Never Alcohol Use Standard Drinks/Week Comments Yes 0 (1 standard drink = 0.6 oz pur e alcohol) Sex and Gender Information Value Date Recorded Sex Assigned at Not on file Gender Identity Not on file Sexual Orientation Not on file Last Filed Vital Signs Vital Sign Reading Time Taken Comments Blood Pressure 122/60 01/25/2018 10:21 AM CDT Pulse 68 01/25/2018 10:21 AM CDT Temperature - - Respiratory Rate 14 01/25/2018 10:21 AM CDT Oxygen Saturation 97% 01/25/2018 10:21 AM CDT Inhaled Oxygen Concentration - - Weight 71.2 kg (157 lb) 01/25/2018 10:21 AM CDT Height 165.1 cm (5' 5 ) 01/25/2018 10:21 AM CDT Body Mass Index 26.13 01/25/2018 10:21 AM CDT Plan of Treatment Not on file Care Teams Senior Instructor Relationship Specialty Start Date End Date Simón Clay MD [address] [place] [address] PCP - General Surgery 06/23/17
--- OUTSIDE RECORDS SUMMARY | 2024-10-12 08:21 | XMS_ITS | Clinical Summary ---
Author Organization [facility] Address [address] [place] [place] [address] Care Team Providers Care Manager City Name Role Phone Simón Clay MD Primary Care Provider [phone] Source Comments [facility],non-owned Affiliates and Associated Physician Practices is amultiple site organization consisting of ambulatory clinics and hospital sitesin [place], [place], [place] and [place]. This disclosure is being madepursuant to the Care Everywhere program and may not contain all information available regarding this patient. Last updated 18.[facility] Allergies No known active allergies Medications * [...] 06/23/2017 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 Spastic gait 06/23/2017 Family History Medical History Relation Name Comments CAD (Coronary Artery Disease) Brother 1 Hypertension Brother 2 Hypertension Brother 3 CAD (Coronary Artery Disease) Father Relation Name Status Comments Brother 1 Brother 2 Alive Brother 3 Alive Father Mother Social History Tobacco Use Types [...] 01/25/2018 10:21 AM CDT Plan of Treatment Health Maintenance Due Date Last Done Comments BONE DENSITY TESTING 1955 COLOGUARD (AGES 45-75) - COL ON CA SCREENING 1955 COLON MONITORING 1956 COLONOSCOPY - COLON CA SCREENING 1956 CT COLONOGRAPHY - COLON CA SCREENING 1955 Colorectal Cancer Screening 1955 FIT - COLON CA SCREENING 1956 FLEX SIG - COLON CA SCREENING 1956 LIPID TESTING 1955 MAMMOGRAM 1955 HEPATITIS C SCREENING 08/06/1974 DTAP/TDAP/TD VACCINES (1 - Tdap) 1975 PNEUMOCOCCAL VACCINE 50+ (1 of 1 - PCV) 2006 ZOSTER VACCINE (1 of 2) 2006 COVID-19 VACCINE ( - 2023-2 5 season) 2024 INFLUENZA VACCINE (#1) 2024 DEPRESSION SCREENING 08/29/2024 Respiratory Syncytial Virus (RSV) Vaccine Pt: or over 60 yrs (1 - 1-dose 75+ series) 2031 HEPATITIS B VACCINE Aged Out No longe r eligible based on patient's age to complete this topic HIB VACCINE Aged Out No longer eligi ble based on patient's age to complete this topic HPV VACCINE Aged Out No longer eligi ble based on patient's age to complete this topic MENINGOCOCCAL (Group B) VACCINE Aged Out No longer eligible based on patient's age to complete this topic MENINGOCOCCAL VACCINE Aged Out No raheem mary eligible based on patient's age to complete this topic Care Teams Manager City Relationship Specialty Start Date End Date Simón Clay MD [address] [place] [address] PCP - General Surgery 06/23/17
--- OUTSIDE RECORDS SUMMARY | 2024-10-12 08:21 | XMS_ITS | Data Portability ---
Author Organization [facility] [employer], Main Office Address [address] [place] [address] Assessment No assessment recorded. Plan of Treatment Reminders Order Date Submit Date Provider Last Modified By Organization Details Last Modified Time Details Appointments None recorded. Lab None recorded. Referral None recorded. Procedures None recorded. Surgeries None recorded. Imaging None recorded. Medication Orders metformin ER 500 mg tablet,exte nded release 24 hr 2022 023 [id number] [id number], [address] [place], [address], 3 19:54:39 Prolia 60 mg/mL subcutaneou s syringe 2022 023 [id number], [address] [place], [address], 3 17:45:12 Patient TargetsNo targets recorded. Patient InstructionsNo instructions recorded. Reason for Referral None Reported. Results Created Date Observation Date Name Description Value Unit Range Abnormal Flag Note LastModifiedBy Organization Detail LastModifiedTime 02/25/20 22 02/22/2022 bone densi ty No observ ation record ed. [id number] [facility] [address], [place], [address], 10/27/2022 00:54:03 Result Notes None recorded. Problems Name Problem SNOMED Code Status Onset Date Resolution Date Notes Provider Name and Address Organization Details Recorded Time Postmenopausa l osteoporosis 676397356 Active 2021 Not Available [facility] 3 00:48:04 Hypothyroidis m 42218113 Active 2021 Not Available [facility] 3 00:48:04 Osteoporosis 60825644 Active 2018 Not Available [facility] 3 00:48:04 Anh thyroiditis 05874022 Active 2022 Karla Lou MD [address], [place], [address] , [facility] 3 13:36:55 Impaired fasting glycemia 707908982 Active 2022 Karla Lou MD [address], [place], [address] , [facility] 3 13:37:04 Prediabetes 979382552 Active 2022 Karla Lou MD [address], [facility] [address], [place], [address] , [facility] 3 17:36:55 Problem Notes None recorded. Procedures Surgical History None recorded. Imaging Results Imaging Date Name Status LastModified by Organiz ation Details LastModified Time 02/22/2022 bone density completed [id number] [facility] [address], [place], [address], 10/27/2022 00:54:03 Procedure Notes None recorded. Medical Equipment None Reported. Medications Name Sig Start Date Stop Date Status Note LastModified by Organization Details LastModified Time venlafaxi ne ER 37.5 mg capsule,e xtended release 24 hr TAKE 1 CAPSULE BY MOUTH EVERY DAY 03/22 completed Not Available Not Available Not Available azithromy dino 250 mg tablet 02/20 completed Not Available Not Available Not Available ibuprofen 800 mg tablet 03/22 completed Not Available Not Available Not Available benzonata te 200 mg capsule TAKE 1 CAPSULE BY MOUTH TWICE A DAY NEEDED FOR COUGH 03/22 completed Not Available Not Available Not Available alendrona te 70 mg tablet TAKE 1 TABLET BY MOUTH WEEKLY. 3 MONTH SUPPLY 03/22 completed Not Available Not Available Not Available sulfameth oxazole 800 mg-trimet hoprim 160 mg tablet TAKE 1 TABLET BY MOUTH TWICE A DAY active Not Available Not Available No t Available levothyro xine 25 mcg tablet TAKE 1 TABLET BY MOUTH EVERY DAY IN THE MORNING active Not Available Not Available No t Available dexametha sone 1 mg tablet Take 1 tablet as needed by oral route at bedtime for 1 day. active take dexa tablet at 10 pm night before 8 am cortisol Not Available Not Available Not Available diclofena c sodium 50 mg tablet,de layed release 03/22 completed Not Available Not Available Not Available fluticaso ne propionat e 50 mcg/actua tion nasal spray,dayanara pension USE 1 SPRAY IN EACH NOSTRIL TWICE DAILY X3DAYS, THEN ONCE DAILY UNTIL SYMPTOMS GONE 04/07 completed Not Available Not Available Not Available metformin ER 500 mg tablet,ex tended release 24 hr TAKE 1 TABLET BY MOUTH EVERY DAY AT DINNER FOR 90 DAYS active Not Available Not Available No t Available loratadin e 10 mg tablet TAKE 1 TABLET BY MOUTH EVERY DAY 03/22 completed Not Available Not Available Not Available cranberry 500 mg capsule Take by oral route. active Not Available Not Available No t Available naproxen 500 mg tablet TAKE 1 TABLET BY MOUTH TWICE A DAY NEEDED FOR PAIN active Not Available Not Available No t Available amoxicill in 875 mg-potass ium clavulana te 125 mg tablet TAKE 1 TABLET BY MOUTH EVERY 12 HOURS 09/29 completed Not Available Not Available Not Available moxifloxa dino 0.5 % eye drops INSTILL 1 DROP INTO LEFT EYE 3 TIMES A DAY active Not Available Not Available No t Available calcium 2018 active Not Available Not Available Not Avai lable Fish Oil 03/22 completed Not Available Not Available Not Available Vitamin D3 active Not Available Not Available Not Available multivita min active Not Available Not Available Not Available melatonin 5 mg tablet Take by oral route. active Not Available Not Available No t Available Prolia 60 mg/mL subcutane ous syringe inject 60 mg SQ once every 6 months 2022 active PATIENT TOLERATE D INJECTIO N WELL. NO REDNESS AT SITE OF INJECTIO N. Not Available Not Available Not Available Myrbetriq 25 mg tablet,ex tended release TAKE 1 (ONE) TABLET BY MOUTH AT BEDTIME, MONITOR BLOOD PRESSURE WEEKLY active Not Available Not Available No t Available Fluzone Quad 9624-2943 60 mcg (15 mcg x 4)/0.5 mL IM suspensio n 03/22 completed Not Available Not Available Not Available Afluria Qd 2018- (36 mos up)(PF)60 mcg (15 mcg x4)/0.5 mL IM syringe 03/22 completed Not Available Not Available Not Available Vitals Date Recorded Body height Body temperature Provider N ezio and Address Organization Details Last Updated DateTime 12/24/2022 162.56 cm 96.9 [degF] Marcy Eaton Bernard [facility] [employer] [facility] 12/24/2022 09:12:07 Date Recorded Body height Body mass index (BMI) Body weight Body temperature Heart rate Systolic blood pressure Diastolic blood pressure Provider Name and Address Organization Details Last Updated DateTime 3 162.56 cm 25.4 kg/m2 38105.6 7 g 97.9 [degF] 77 /min 123 mm[Hg] 71 mm[Hg] Marcy Eaton Bernard [facility] [employer] [facility] 17:25:50 Date Recorded Body mass index (BMI) Body mass index (BMI) Body height Body height Oxygen saturation Oxygen saturation in Arterial blood by Pulse oximetry Oxygen saturation Oxygen saturation in Arterial blood by Pulse oximetry Heart rate Heart rate Respiratory rate Body temperature Body temperature Body weight Body weight Systolic blood pressure Diastolic blood pressure Systolic blood pressure Diastolic blood pressure Provider Name and Address Organization Details Last Updated DateTime 3 26.1 kg/m2 25.2 kg/m2 162.56 cm 162.56 cm 96 % 96 % 99 % 99 % 76 /min 71 /min 14 /min 98.1 [degF] 98 [degF] 90805.0 4 g 75541.0 8 g 130 mm[Hg] 82 mm[Hg] 130 mm[Hg] 85 mm[Hg] Not Available [facility] 00:45:48 Social History Question Answer Notes LastModified by Organizat ion Details LastModified Time Tobacco Smoking Status Never Smoker Not Available [facility] 10/27/2022 00:42:57 Do You Have An Advance Directive? No [id number] 026 Information not available 10/27/2022 What Is Your Level Of Alcohol Consumption? None MIGRATION.6692021 026 Information not available 10/27/2022 Are You Blind Or Do You Have Difficulty Seeing? No MIGRATION.[id number] 026 Information not available 10/27/2022 What Is Your Level Of Caffeine Consumption? Heavy MIGRATION.6237945 026 Information not available 10/27/2022 In The 14 Days Before Symptom Onset, Have You Had Close Contact With A Laboratory-confirm ed COVID-19 While That Case Was Ill? No MIGRATION.7830112 026 Information not available 10/27/2022 In The 14 Days Before Symptom Onset, Have You Had Close Contact With A Person Who Is Under Investigation For COVID-19 While That Person Was Ill? No MIGRATION.8186155 026 Information not available 10/27/2022 Are You Deaf Or Do You Have Serious Difficulty Hearing? No MIGRATION.3481331 026 Information not available 10/27/2022 What Type Of Diet Are You Following? REGULAR MIGRATION.4544294 026 Information not available 10/27/2022 Which Illicit Or Recreational Drugs Have You Used? No MIGRATION.2066798 026 Information not available 10/27/2022 What Is The Highest Grade Or Level Of School You Have Completed Or The Highest Degree You Have Received? [id number] MIGRATION.6212150 026 Information not available 10/27/2022 Do You Have A Medical Power Of Database Support? No MIGRATION.2355701 026 Information not available 10/27/2022 What Is Your Relationship Status? MIGRATION.8217537 026 Information not available 10/27/2022 Do You Use Your Seat Belt Or Car Seat Routinely? Yes MIGRATION.8791777 026 Information not available 10/27/2022 Do You Feel Stressed (tense, Restless, Nervous, Or Anxious, Or Unable To Sleep At Night)? [id number] MIGRATION.0606039 026 Information not available 10/27/2022 Do You Use Any Illicit Or Recreational Drugs? No MIGRATION.4843954 026 Information not available 10/27/2022 Have You Recently Traveled Abroad? No MIGRATION.5166931 026 Information not available 10/27/2022 Do You Have Any Dietary Restrictions? No MIGRATION.6634185 026 Information not available 10/27/2022 Do You Or Have You Ever Used Any Other Forms Of Tobacco Or Nicotine? No MIGRATION.0496791 026 Information not available 10/27/2022 Sex: Female Functional Status Question Answer Note LastModified by Organizat ion Details LastModified Time Do you have difficulty walking or climbing stairs? Yes cane MIGRATION.9760831 026 Information not available 10/27/2022 Do you have transportation difficulties? No MIGRATION.7673012 026 Information not available 10/27/2022 Are you able to walk? YESASSIST MIGRATION.7538947 026 Information not available 10/27/2022 Do you have difficulty doing errands alone? No MIGRATION.6576064 026 Information not available 10/27/2022 Are you able to care for yourself? Yes MIGRATION.8525441 026 Information not available 10/27/2022 Do you have difficulty dressing or bathing? No MIGRATION.8684257 026 Information not available 10/27/2022 What is your exercise level? None MIGRATION.5033849 026 Information not available 10/27/2022 Mental Status Question Answer Note LastModified by Organizat ion Details LastModified Time Do you have difficulty concentrating, remembering or making decisions? No MIGRATION.[id number] 6 Information not available 10/27/2022 Family History Nothing Reported. Medical History Condition Response EYE PROBLEMS Y CANCER: SPECIFY Y AUTOIMMUNE DISEASE Y BLADDER PROBLEMS Y HYPOTHYROIDISM Y Gynecological HistoryNo gynecological history recorded. Obstetrics History GPAL:G 0 P 0 0 0 0 Past Encounters Encounter ID Performer Location Encounter Start Date Encounter Closed Date Diagnosis/Indication Diagnosis SNOMED-CT Code Diagnosis ICD10 Code Diagnosis Note [id number] [facility] [address] [place] [address] 10/27/2020 00:00:00 10/27/2020 11:02:01 [id number] [facility] [address] [place] [address] 04/07/2021 00:00:00 04/07/2021 11:10:10 [id number] [facility] [address] [place] [address] 09/29/2021 00:00:00 09/29/2021 11:48:51 [id number] [facility] [address] [place] [address] 05/07/2022 00:00:00 05/07/2022 12:01:56 [id number] Karla Lou MD [facility] [address] [place] [address] 12/24/2022 09:00:52 12/24/2022 09:14:41 Postmenopausal osteoporosis 555446298 M81.0 Patient tolerated injection without pain or site reaction. She will return in 6 months for repeat injection. Repeat bone density scan in summer 2023. [id number] Karla Lou MD [facility] [address] [place] [address] 03/22/2023 16:54:40 03/23/2023 13:30:45 Prediabetes 693134150 R73.03 A1C of 6%- trial on metformin ER 500 mg daily with dinner. Discussed carb counting and how to read food labels. Recommende d patient to utilize the diabetesfo [employer] from the ADA website to help with food preparatio n as this presents ideal carb content per meal so this will make carb counting much easier for patient. Recommende d she incorporat e natural insulin bottom steep tender s such as pears, apples, cinnamon, luh and sweet potatoes to help mobilize her endogenous insulin. Recommende d up to 150 minutes of moderate level activity/e xercise weekly. Anh thyroiditis 21 720638 E06.3 Recommende d a thyroid supplement similiar to actalin by Dr. Jignesh Martinez that contains, iodine, magnesium, manganese, carnitine and other elements to help maintain endogenous thyroid function and help to reduce swelling to take in meantime to help reduce time frame to burn out and to help with fatigue, hair thinning etc. Patient doesn't wish to start on replacemen t at this time. Postmenopa usal osteoporosis 842026422 M81.0 Continue on prolia injections - repeat in e is aware to follow with her PCP for further injections due to my resignatio n. Repeat bone density scan in summer 2023. Spent up to 25 minutes preparing to see the patient (eg, review of tests), obtaining and/or reviewing separately obtained history, performing a medically appropriat e examinatio n and evaluation , counseling and educating the patient, ordering medication s, tests, along with documentin g clinical informatio n in the electronic health record, lilianen tly interpreti ng results and communicat ing results to the patient. Patient can be followed by PCP - she/he is aware of my resignatio n and last day of June 10. If needed his/her PCP can refer patient to another endocrinol ogist in the area. All questions /concerns answered and refills necessary at visit today. Health Concerns Section Related Observation LastModified by Organization Detai ls LastModified Time None Recorded Concern Status LastModified by Organization Details LastModified Time None Recorded Advance Directives Directive N: Payers Encounter Date Sequence Insurance Name Policy Number Policy Hensley Covered Member ID Hensley Member ID Guarantor Name 12/24/2022 1 [place] Maria De Jesus A Ondes [id number] Maria De Jesus Ondes 12/24/2022 1 [employer] (PPO) [id number] Maria De Jesus A Ondes [id number] Maria De Jesus Ondes 03/22/2023 1 [employer] (MEDICARE REPLACEMENT PPO) [id number] Maria De Jesus A Ondes [id number] Maria De Jesus Ondes Notes Date Note Type Note Provider Name and Address Organization Details Recorded Time 12/24/2022 text/html 67 yo female com es in for prolia injection in management of postmenopausal osteoporosis. Karla Lou MD [address] [place] [address], [address], [facility] [employer] 12/24/2022 14:03:48 03/22/2023 text/html 67 yo female com es in for follow up in management of hashimotos thyroiditis, impaired fasting glucose and postmenopausal osteoporosis. At her last visit in Apr we transitioned off alendronate to prolia due to worsening BMD. Her first injection was in November -due for repeat in May. we recommended natural insulin sensitizers. we started thyroid replacement in November. Patient not taking consistently but TSH remains elevated. She doesn't wish to start on medication at this time for her thyroid. She does notice more fatigue and palpitations on occasion. Her sugars are elevated. She is tolerating the prolia well and had no issues with numbness or tingling of fingers/cheeks following injection. labs from 02/26/23:vit D 90 ng/mlinsulin 3.1 uu/mlTSH of 3.66 uIU/mlPTH 77 pg/ML with calcium 8.9 mg/dLCr normalLFT normalFT4 of 0.93 ng/dLFT3 of 2.36 pg/mLa1c 6%glucose 98 mg/dL Karla Lou MD [address] [facility], [facility] [address], [place], [address], [place] [facility] 03/22/2023 19:58:23 OBGyn Episode No OBEpisode recorded.
--- OUTSIDE RECORDS SUMMARY | 2024-10-12 08:21 | XMS_ITS | Patient Health Summary ---
Author Organization [facility] Address [address] [place] [address] Care Team Providers Care Telesales Advisor Name Role Phone Simón Clay MD Primary Care Provider [phone] Note from [facility],non-owned Affiliates and Associated Physician Practices is amultiple site organization consisting of ambulatory clinics and hospital sitesin [place], [place], [place] and [place]. This disclosure is being madepursuant to the Care Everywhere program and may not contain all information available regarding this patient. Last updated 18.[facility] Allergies No known active allergies Medications * Be aware that medications may not be up to date on this document. Alwaysverify current medications with the patient. * Multiple Vitamins-Minerals (MACULAR VITAMIN BENEFIT) TABS Take 1 tablet by mouth once daily * CALCIUM-VITAMIN D PO Take 2 tablets by mouth once daily * Multiple Vitamins-Minerals (MULTIVITAMIN ADULT PO) Take 1 tablet by mouth once daily Active Problems Problem Noted Date Diagnosed Date [...] Mass Index 26.13 01/25/2018 10:21 AM CDT Procedures * LAB(Performed 03/06/2019) * MRI THORACIC SPINE WO CONTRAST(Performed 10/17/2017) Performed for ALD (adrenoleukodystrophy) (HCC), Gait difficulty * MRI BRAIN WWO CONTRAST(Performed 07/04/2017) Performed for Gait difficulty, Bilateral leg weakness, ALD (adrenoleukodystrophy) (HCC), Spastic gait * MRI CERVICAL SPINE WWO CONT(Performed 07/04/2017) Performed for Gait difficulty, Bilateral leg weakness, ALD (adrenoleukodystrophy) (HCC), Spastic gait * CREATININE BLOOD - POINT OF CARE (IP)(Performed 07/04/2017) Performed for Gait difficulty, Bilateral leg weakness, ALD (adrenoleukodystrophy) (HCC), Spastic gait Results * LAB (03/06/2019) Karla Lou MD SCANNING ONLY * MRI THORACIC SPINE WO CONTRAST (10/17/2017 11:27 AM WHARF WORKER) Anatomical Region Laterality Modality Chest Magnetic Resonan ce Angiography 10/17/2017 11:5 6 AM WHARF WORKER Impressions 10/17/2017 1:03 PM WHARF WORKER Mild degenerative change. Edited by Darlene Bowman on 10/17/2017 12:15 PM Narrative 10/17/2017 1:03 PM WHARF WORKER MRI THORACIC SPINE WITHOUT CONTRAST INDICATION: Chronic gait abnormality, adrenal leukodystrophy. TECHNIQUE: Multisequence, multiplanar MRI sequences of the thoracic spine were obtained without contrast. FINDINGS: The spinal cord has normal signal. Vertebral body heights and disc spaces are preserved. Mild T10-T11 anterior endplate edema. Kyphosis is slightly exaggerated. Lungs are clear. No canal stenosis. No mass. Procedure Note John Mendiola MD - 10/17/2017 MRI THORACIC SPINE WITHOUT CONTRAST INDICATION: Chronic gait abnormality, adrenal leukodystrophy. TECHNIQUE: Multisequence, multiplanar MRI sequences of the thoracic spine were obtained without contrast. FINDINGS: The spinal cord has normal signal. Vertebral body heights and disc spaces are preserved. Mild T10-T11 anterior endplate edema. Kyphosis is slightly exaggerated. Lungs are clear. No canal stenosis. No mass. IMPRESSION Mild degenerative change. Edited by Darlene Bowman on 10/17/2017 12:15 PM Trent Serrano MD MR ORDERABLES * MRI BRAIN WITH AND WITHOUT CONTRAST (07/04/2017 11:27 AM WHARF WORKER) Anatomical Region Laterality Modality Head Magnetic Resonan ce Angiography 07/04/2017 2:26 PM WHARF WORKER Impressions 07/04/2017 2:44 PM WHARF WORKER Volume loss is greater than expected for age, but there is no focal atrophy. No abnormal signal intensity is seen on T2-weighted sequences to suggest a diagnosis of adrenoleukodystrophy. Edited by Mary Villaseñor on 07/04/2017 2:43 PM Narrative 07/04/2017 2:44 PM WHARF WORKER MRI BRAIN WITH CONTRAST INDICATION: Gait difficulty, bilateral leg weakness, adrenoleukodystrophy, spastic gait. No comparison at this institution. TECHNIQUE: The following sequences were obtained: Axial diffusion, axial dual-echo T2, sagittal and axial T1 pre- and postgadolinium, coronal T1 postgadolinium, coronal and axial FLAIR. 15 mL Dotarem was administered for this examination. FINDINGS: Ventricles and sulci are mildly prominent in size for age. There is no focal atrophy. There is no abnormal signal intensity appreciated within the cortical spinal tracts. There is no intracranial hemorrhage, mass, or mass-effect. No abnormal extra-axial fluid collection is seen. After administration of gadolinium, there is no abnormal enhancement. Nonspecific white matter changes are age appropriate. The region of the pituitary gland, pineal gland, and foramen magnum are normal. Visualized cranial and facial soft tissues are unremarkable. Major arterial and dural venous flow-voids at the skull base are patent. Procedure Note Rosette Kamara MD - 07/04/2017 MRI BRAIN WITH CONTRAST INDICATION: Gait difficulty, bilateral leg weakness, adrenoleukodystrophy, spastic gait. No comparison at this institution. TECHNIQUE: The following sequences were obtained: Axial diffusion, axial dual-echo T2, sagittal and axial T1 pre- and postgadolinium, coronal T1 postgadolinium, coronal and axial FLAIR. 15 mL Dotarem was administered for this examination. FINDINGS: Ventricles and sulci are mildly prominent in size for age. There is no focal atrophy. There is no abnormal signal intensity appreciated within the cortical spinal tracts. There is no intracranial hemorrhage, mass, or mass-effect. No abnormal extra-axial fluid collection is seen. After administration of gadolinium, there is no abnormal enhancement. Nonspecific white matter changes are age appropriate. The region of the pituitary gland, pineal gland, and foramen magnum are normal. Visualized cranial and facial soft tissues are unremarkable. Major arterial and dural venous flow-voids at the skull base are patent. IMPRESSION Volume loss is greater than expected for age, but there is no focal atrophy. No abnormal signal intensity is seen on T2-weighted sequences to suggest a diagnosis of adrenoleukodystrophy. Edited by Mary Villaseñor on 07/04/2017 2:43 PM Trent Serrano MD MR ORDERABLES * MRI SPINE CERVICAL WITH AND WITHOUT CONTRAST (07/04/2017 11:06 AM WHARF WORKER) Anatomical Region Laterality Modality Spine Magnetic Resonan ce Angiography 07/04/2017 12:5 5 PM WHARF WORKER Impressions 07/04/2017 2:04 PM WHARF WORKER MRI of the cervical spine does not demonstrate any significant abnormality. Edited by Mary Villaseñor on 07/04/2017 1:04 PM Narrative 07/04/2017 2:04 PM WHARF WORKER MRI CERVICAL SPINE INDICATION: Gait difficulty, bilateral leg weakness, adrenal leukodystrophy, spastic gait. TECHNIQUE: The following sequences were obtained: Sagittal T1 and T2, axial T2 volume, sagittal and axial T1 following intravenous administration of 15 mL Dotarem axial gradient-echo. COMPARISON: None. Alignment: The alignment of the cervical spine is normal. Spinal cord: The cervical spinal cord is normal in signal intensity. There is no abnormal enhancement of the cervical spinal cord following administration of gadolinium. No masses are seen within the cervical spinal canal. Marrow: Normal. Intervertebral discs: The discs are well preserved in height and hydration. There are small posterior disc bulges at C5-6 and C6-7. The AP dimension of the cervical spinal canal is generous, and no significant stenosis results. The following levels were directly imaged in the axial plane: C2-C3: No disc herniation or significant stenosis. C3-C4: No disc herniation or significant stenosis. C4-C5: The left neural foramen is mildly narrowed by facet hypertrophy. The right is patent. There is no significant central canal stenosis. C5-C6: Minimal disc bulge does not result in significant central canal stenosis. The neural foramina are patent. C6-C7: Minimal disc bulge does not result in significant stenosis. The neural foramina are patent. C7-T1: Normal. Procedure Note Rosette Kamara MD - 07/04/2017 MRI CERVICAL SPINE INDICATION: Gait difficulty, bilateral leg weakness, adrenal leukodystrophy, spastic gait. TECHNIQUE: The following sequences were obtained: Sagittal T1 and T2, axial T2 volume, sagittal and axial T1 following intravenous administration of 15 mL Dotarem axial gradient-echo. COMPARISON: None. Alignment: The alignment of the cervical spine is normal. Spinal cord: The cervical spinal cord is normal in signal intensity. There is no abnormal enhancement of the cervical spinal cord following administration of gadolinium. No masses are seen within the cervical spinal canal. Marrow: Normal. Intervertebral discs: The discs are well preserved in height and hydration. There are small posterior disc bulges at C5-6 and C6-7. The AP dimension of the cervical spinal canal is generous, and no significant stenosis results. The following levels were directly imaged in the axial plane: C2-C3: No disc herniation or significant stenosis. C3-C4: No disc herniation or significant stenosis. C4-C5: The left neural foramen is mildly narrowed by facet hypertrophy. The right is patent. There is no significant central canal stenosis. C5-C6: Minimal disc bulge does not result in significant central canal stenosis. The neural foramina are patent. C6-C7: Minimal disc bulge does not result in significant stenosis. The neural foramina are patent. C7-T1: Normal. IMPRESSION MRI of the cervical spine does not demonstrate any significant abnormality. Edited by Mary Villaseñor on 07/04/2017 1:04 PM Trent Serrano MD MR ORDERABLES * (ABNORMAL) CREATININE BLOOD - POINT OF CARE (IP) (07/04/2017 10:03 AM WHARF WORKER) Creatinine POCT 0.64(A) 0.7 - 1.2 mg/dL [facility] POCT TESTING QC Verified Yes Yes [facility] POC T TESTING Blood BLOOD SPECIMEN / Unknown 07/04/2017 10:03 AM WHARF WORKER Trent Serrano MD LAB - POINT OF CARE ORDERABLES [facility] POCT TESTING [address] [phone] Care Teams Telesales Advisor Relationship Specialty Start Date End Date Simón Clay MD [address] [place] [address] PCP - General Surgery 06/23/17
[2024-10-12 09:03] LABS: Alanine Aminotransferase 25 U/L (6-35); Albumin Level 4.4 g/dL (3.5-5.1); Alkaline Phosphatase 81 U/L (38-126); Anion Gap 9 mmol/L (4-12); Aspartate Amino Transferase 29 U/L (14-36); Bilirubin,Total 0.6 mg/dL (0.2-1.3); Blood Urea Nitrogen 27 mg/dL (7-17); Calcium 9.4 mg/dL (8.4-10.2); Carbon Dioxide 30 mmol/L (22-30); Chloride 102 mmol/L (98-107); Estimated Glomerular Filt Rate > 60; Glucose 98 mg/dL (65-110); Potassium 3.7 mmol/L (3.4-5.0); Sodium 141 mmol/L (137-145)
[2024-10-12 09:29] LABS: Free T4 Free Thyroxine 1.13 ng/dL (0.78-2.19); Vitamin D 25 Hydroxy 73.3 ng/mL
== END 2024-10-12 08:16 | disposition home or self-care (01) ==
PROVIDERS: Visit Provider Internal Medicine
DX: E03.9 Hypothyroidism, unspecified (principal); M81.0 Age-related osteoporosis without current pathological fracture; E04.1 Nontoxic single thyroid nodule; R73.03 Prediabetes; E21.0 Primary hyperparathyroidism; E71.529 X-linked adrenoleukodystrophy, unspecified type
CPT/HCPCS: 36415; 80053; 82306; 82533; 84439; 84443; 96372; J0834

== ENCOUNTER 2024-12-14 07:24 | Outpatient (CLI) | payer MEDICARE, SELFPAY ==
--- OUTSIDE RECORDS SUMMARY | 2024-12-14 07:29 | XMS_ITS | Clinical Summary ---
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
--- OUTSIDE RECORDS SUMMARY | 2024-12-14 07:29 | XMS_ITS | Data Portability ---
Author Organization [facility], Main Office Address [address] [place] [address] Assessment No assessment recorded. Plan of Treatment Reminders Order Date Submit Date Provider Last Modified By Organization Details Last Modified Time Details Appointments None recorded. Lab None recorded. Referral None recorded. Procedures None recorded. Surgeries None recorded. Imaging None recorded. Medication Orders metformin ER 500 mg tablet,exte nded release 24 hr 2022 023 [id number] [id number], [address] [place], [address], 3 19:54:39 Prolia 60 mg/mL subcutaneou s syringe 2022 023 [id number], [address] [place], [address], 3 17:45:12 Patient TargetsNo targets recorded. Patient InstructionsNo instructions recorded. Reason for Referral None Reported. Results Created Date Observation Date Name Description Value Unit Range Abnormal Flag Note LastModifiedBy Organization Detail LastModifiedTime 02/25/20 22 02/22/2022 bone densi ty No observ ation record ed. [id number] [facility] [address], [place], [address], 10/27/2022 00:54:03 Result Notes None recorded. Problems Name Problem SNOMED Code Status Onset Date Resolution Date Notes Provider Name and Address Organization Details Recorded Time Postmenopausa l osteoporosis 487630674 Active 2021 Not Available [facility] 3 00:48:04 Hypothyroidis m 59923931 Active 2021 Not Available [facility] 3 00:48:04 Osteoporosis 37578307 Active 2018 Not Available [facility] 3 00:48:04 Anh thyroiditis 07549215 Active 2022 Karla Luo MD [address], [place], [address] , [employer] 3 13:36:55 Impaired fasting glycemia 746339771 Active 2022 Karla Lou MD [address], [place], [address] , [employer] 3 13:37:04 Prediabetes 425828462 Active 2022 Karla Lou MD [address], [facility] [address], [place], [address] , [employer] 3 17:36:55 Problem Notes None recorded. Procedures Surgical History None recorded. Imaging Results Imaging Date Name Status LastModified by Organiz ation Details LastModified Time 02/22/2022 bone density completed [id number] [facility] [address], [place], [address], 10/27/2022 00:54:03 Procedure Notes None recorded. Medical [...] Not Available No t Available Fluzone Quad 3963-1758 60 mcg (15 mcg x 4)/0.5 mL IM suspensio n 03/22 completed Not Available Not Available Not Available Afluria Qd 2019-20 (36 mos up)(PF)60 mcg (15 mcg x4)/0.5 mL IM syringe 03/22 completed Not Available Not Available Not Available Vitals Date Recorded Body height Body temperature Provider N ezio and Address Organization Details Last Updated DateTime 12/24/2022 162.56 cm 96.9 [degF] Marcy Eaton Bernard [facility] [email or web address] [facility] 12/24/2022 09:12:07 Date Recorded Body height Body mass index (BMI) Body weight Body temperature Heart rate Systolic blood pressure Diastolic blood pressure Provider Name and Address Organization Details Last Updated DateTime 3 162.56 cm 25.4 kg/m2 20677.6 7 g 97.9 [degF] 77 /min 123 mm[Hg] 71 mm[Hg] YESSENIA Duff [place] [facility] [email or web address] [facility] 3 17:25:50 Date Recorded Body mass index (BMI) Body height Oxygen saturation Oxygen saturation in Arterial blood by Pulse oximetry Heart rate Respiratory rate Body temperature Body weight Systolic blood pressure Diastolic blood pressure Provider Name and Address Organization Details Last Updated DateTime 1 26.1 kg/m2 162.56 cm 96 % 96 % 76 /min 14 /min 98.1 [degF] 84081.0 4 g 130 mm[Hg] 82 mm[Hg] Not Available [facility] 3 00:45:48 Date Recorded Body mass index (BMI) Body height Oxygen saturation Oxygen saturation in Arterial blood by Pulse oximetry Heart rate Body temperature Body weight Systolic blood pressure Diastolic blood pressure Provider Name and Address Organization Details Last Updated DateTime 2 25.2 kg/m2 162.56 cm 99 % 99 % 71 /min 98 [degF] 36340.0 8 g 130 mm[Hg] 85 mm[Hg] Not Available [facility] 3 00:45:48 Social History Question Answer Notes LastModified by Organizat ion Details LastModified Time Tobacco Smoking Status Never Smoker Not Available [facility] 10/27/2022 00:42:57 Do You Have An Advance Directive? No [id number] 026 Information not available 10/27/2022 What Is Your Level Of Alcohol Consumption? None MIGRATION.3675470 026 Information not available 10/27/2022 Are You Blind Or Do You Have Difficulty Seeing? No MIGRATION.3189779 026 Information not available 10/27/2022 What Is Your Level Of Caffeine Consumption? Heavy MIGRATION.8336028 026 Information not available 10/27/2022 In The 14 Days Before Symptom Onset, Have You Had Close Contact With A Laboratory-confirm ed COVID-19 While That Case Was Ill? No MIGRATION.[id number] 026 Information not available 10/27/2022 In The 14 Days Before Symptom Onset, Have You Had Close Contact With A Person Who Is Under Investigation For COVID-19 While That Person Was Ill? No MIGRATION.7353205 026 Information not available 10/27/2022 Are You Deaf Or Do You Have Serious Difficulty Hearing? No MIGRATION.8747717 026 Information not available 10/27/2022 What Type Of Diet Are You Following? REGULAR MIGRATION.0554662 026 Information not available 10/27/2022 Which Illicit Or Recreational Drugs Have You Used? No MIGRATION.3998719 026 Information not available 10/27/2022 What Is The Highest Grade Or Level Of School You Have Completed Or The Highest Degree You Have Received? BP88061-2 MIGRATION.3870464 026 Information not available 10/27/2022 Do You Have A Medical Power Of Timber Management Professor? No MIGRATION.4461747 026 Information not available 10/27/2022 What Is Your Relationship Status? MIGRATION.6616775 026 Information not available 10/27/2022 Do You Use Your Seat Belt Or Car Seat Routinely? Yes MIGRATION.3602512 026 Information not available 10/27/2022 Do You Feel Stressed (tense, Restless, Nervous, Or Anxious, Or Unable To Sleep At Night)? QT2518-4 MIGRATION.0791574 026 Information not available 10/27/2022 Do You Use Any Illicit Or Recreational Drugs? No MIGRATION.1899042 026 Information not available 10/27/2022 Have You Recently Traveled Abroad? No MIGRATION.3043433 026 Information not available 10/27/2022 Do You Have Any Dietary Restrictions? No MIGRATION.8103770 026 Information not available 10/27/2022 Do You Or Have You Ever Used Any Other Forms Of Tobacco Or Nicotine? No MIGRATION.8632854 026 Information not available 10/27/2022 Sex: Female Functional Status Question Answer Note LastModified by Organizat ion Details LastModified Time Do you have difficulty walking or climbing stairs? Yes cane MIGRATION.7832328 026 Information not available 10/27/2022 Do you have transportation difficulties? No MIGRATION.8478587 026 Information not available 10/27/2022 Are you able to walk? YESASSIST MIGRATION.6844527 026 Information not available 10/27/2022 Do you have difficulty doing errands alone? No MIGRATION.0624400 026 Information not available 10/27/2022 Are you able to care for yourself? Yes MIGRATION.9075509 026 Information not available 10/27/2022 Do you have difficulty dressing or bathing? No MIGRATION.0885255 026 Information not available 10/27/2022 What is your exercise level? None MIGRATION.2086977 026 Information not available 10/27/2022 Mental Status Question Answer Note LastModified by Organizat ion Details LastModified Time Do you have difficulty concentrating, remembering or making decisions? No MIGRATION.[id number] 6 Information not available 10/27/2022 Family History Nothing Reported. Medical History Condition Response BLADDER PROBLEMS Y EYE PROBLEMS Y HYPOTHYROIDISM Y CANCER: SPECIFY Y AUTOIMMUNE DISEASE Y Gynecological HistoryNo gynecological history recorded. Obstetrics History GPAL:G 0 P 0 0 0 0 Past Encounters Encounter ID Performer Location Encounter Start Date Encounter Closed Date Diagnosis/Indication Diagnosis SNOMED-CT Code Diagnosis ICD10 Code Diagnosis Note [id number] [facility] [address] [place] [address] 10/27/2020 00:00:00 10/27/2020 11:02:01 [id number] [facility] [address] [place] [address] 04/07/2021 00:00:00 04/07/2021 11:10:10 [id number] [facility] [address] [place] [address] 09/29/2021 00:00:00 09/29/2021 11:48:51 [id number] [facility] [address] [place] [address] 05/07/2022 00:00:00 05/07/2022 12:01:56 [id number] Karla Lou MD [facility] [place] [address] [place] [address] 12/24/2022 09:00:52 12/24/2022 09:14:41 Postmenopausal osteoporosis 698081945 M81.0 Patient tolerated injection without pain or site reaction. She will return in 6 months for repeat injection. Repeat bone density scan in summer 2023. [id number] MD THOMAS [facility] [place] [address] [place] [address] 03/22/2023 16:54:40 03/23/2023 13:30:45 Prediabetes 355526850 R73.03 A1C of 6%- trial on metformin ER 500 mg daily with dinner. Discussed carb counting and how to read food labels. Recommende d patient to utilize the diabetesfo [employer] from the ADA website to help with food preparatio n as this presents ideal carb content per meal so this will make carb counting much easier for patient. Recommende d she incorporat e natural insulin pile driving technician s such as pears, apples, cinnamon, luh and sweet potatoes to help mobilize her endogenous insulin. Recommende d up to 150 minutes of moderate level activity/e xercise weekly. Anh thyroiditis 21 169150 E06.3 Recommende d a thyroid supplement similiar [...] t at this time. Postmenopa usal osteoporosis 970745082 M81.0 Continue on prolia injections - repeat [...] informatio n in the electronic health record, shira simental interpreti ng results and communicat ing results [...] [place] Maria De Jesus A Ondes [id number] Maria De Jesus Ondes 12/24/2022 1 [employer] (PPO) [id number] 1 Maria De Jesus A Ondes [id number] Maria De Jesus Ondes 03/22/2023 1 [employer] (MEDICARE REPLACEMENT PPO) [id number] 1 Maria De Jesus A Ondes [id number] Maria De Jesus Ondes Notes Date Note Type Note Provider Name and Address Organization Details Recorded Time 12/24/2022 text/html 67 yo female com es in for prolia injection in management of postmenopausal osteoporosis. Karla Lou MD [address] [place] [address], [id number], [place] [employer] [facility] 12/24/2022 14:03:48 03/22/2023 text/html 67 yo female [...] 6%glucose 98 mg/dL Karla Lou MD [address] [facility] [facility] [address], [place], [address], [place] [employer] [facility] 03/22/2023 19:58:23 OBGyn Episode No OBEpisode recorded.
--- OUTSIDE RECORDS SUMMARY | 2024-12-14 07:29 | XMS_ITS | Clinical Summary ---
Author Organization [facility] [employer] Address [address] [place] [address] Care Team Providers Care Spout Positioner Name Role Phone Simón Clay MD Primary Care Provider Source Comments [facility] [employer] [facility],non-owned Affiliates and Associated Physician Practices is amultiple site organization consisting of ambulatory clinics and hospital sitesin [place], [place], [place] and [place]. This disclosure is being madepursuant to the Care Everywhere program and may not contain all information available regarding this patient. Last updated 18.[facility] [employer] [facility] Allergies No known active allergies Medications * Be aware that medications may not be up to date on this document. Alwaysverify current medications with the patient. Multiple Vitamins-Minera ls (MACULAR VITAMIN BENEFIT) TABSIndications :Gait difficulty,Bila teral leg weakness,ALD (adrenoleukodys trophy),Spastic gait Take 1 tablet by mouth once daily Active CALCIUM-VITAMIN D POIndications:G ait difficulty,Bila teral leg weakness,ALD (adrenoleukodys trophy),Spastic gait Take 2 tablets by mouth once daily Active Multiple Vitamins-Minera ls (MULTIVITAMIN ADULT PO)Indications: Gait difficulty,Bila teral leg weakness,ALD (adrenoleukodys trophy),Spastic gait Take 1 tablet by mouth once [...] drink = 0.6 oz pur e alcohol) Comments Unknown Sex and Gender Information Value Date Recorded Sex Assigned at Not on file Legal Sex Female 12:38 PM CDT Gender Identity Not on file Sexual Orientation Not on file Occupation Industry Job Start Date Job End Date retired Not on file Not on file Not on file Last Filed Vital Signs [...] VACCINE ( - 2023-2 5 season) 2024 DEPRESSION SCREENING 08/29/2024 INFLUENZA VACCINE (Season Ended) 2025 Respiratory Syncytial Virus (RSV) Vaccine Pt: or [...] to complete this topic MENINGOCOCCAL (Group B) VACC INE SHARED DECISION-MAKING Aged Out No longer eligibl e based on patient's age to complete this topic MENINGOCOCCAL GROUPS A/C/Y/W VACCINE Aged Out No longer eligible b ased on patient's age to complete this topic Insurance [employer] Care Teams Spout Positioner Relationship Specialty Start Date End Date Simón Clay MD [address] [place] [address] PCP - General Surgery 06/23/17
[2024-12-14 08:08] LABS: Free T4 Free Thyroxine 1.08 ng/dL (0.76-1.46); Thyroid Stimulating Hormone 2.57 uIU/mL (0.36-3.74)
== END 2024-12-14 07:25 | disposition home or self-care (01) ==
LOC: CHSLAB 07:26
PROVIDERS: PCP Nurse Practitioner Family; Visit Provider Internal Medicine
DX: E03.9 Hypothyroidism, unspecified (principal); M81.0 Age-related osteoporosis without current pathological fracture; E04.1 Nontoxic single thyroid nodule; R73.03 Prediabetes
CPT/HCPCS: 36415; 84439; 84443

== ENCOUNTER 2024-12-18 08:20 | Outpatient (CLI) | payer MEDICARE, SELFPAY ==
--- NOTE | ~2024-12-18 | DEXA_ITS ---
Bone Density Report Name: NAREN LOPEZ Age: 69 Sex: Female Ethnicity: White Date of : 1955 Indication: osteopenia; monitoring treatment; height loss; Referring Provider: ARNAV MALIK Study: Bone densitometry was performed. Exam Date: December 18, 2024 Accession number: [id number] Bone Density: Region BMD T-score Z-score Classification AP Spine(L1-L4) 0.894 -1.4 0.6 Osteopenia Femoral Neck (Left) 0.581 -2.4 -0.7 Osteopenia Total Hip (Left) 0.839 -0.8 0.6 Normal Femoral Neck (Right) 0.558 -2.6 -0.9 Osteoporosis Total Hip (Right) 0.811 -1.1 0.3 Osteopenia Femoral Neck Mean 0.569 -2.5 -0.8 Osteoporosis Total Hip Mean 0.825 -1.0 0.4 Normal World Health Organization criteria for BMD impression classify patients as: Normal (T-score at or above -1.0), Osteopenia (T-score between -1.0 and -2.5), or Osteoporosis (T-score at or below -2.5). 10-year Fracture Risk: FRAX not reported because: Some T-score for Spine Total or Hip Total or Femoral Neck at or below -2.5 Treated for osteoporosis Previous Exams: Region Exam Age BMD T-score BMD Change BMD Change Date g/cm2 vs Baseline vs Previous AP Spine (L1-L4) 12/18/2024 69 0.894 -1.4 0.104 (13.1%)# 0.003 (0.3%)# 02/21/2020 64 0.891 -1.4 0.101 (12.8%)* 0.101 (12.8%)* 12/29/2018 63 0.790 -2.3 Total Hip(Left) 12/18/2024 69 0.839 -0.8 0.127 (17.8%)# 0.043 (5.3%)* 06/01/2023 67 0.796 -1.2 0.084 (11.8%)# 0.059 (8.0%)* 02/22/2022 66 0.737 -1.7 0.025 (3.6%)# 0.027 (3.8%)# 02/21/2020 64 0.710 -1.9 -0.002 (-0.2%) -0.002 (-0.2%) 12/29/2018 63 0.712 -1.9 Total Hip(Right) 12/18/2024 69 0.811 -1.1 0.134 (19.7%)# 0.070 (9.4%)* 06/01/2023 67 0.741 -1.6 0.064 (9.4%)# 0.011 (1.4%) 02/22/2022 66 0.730 -1.7 0.053 (7.9%)# 0.058 (8.6%)# 02/21/2020 64 0.673 -2.2 -0.004 (-0.6%) -0.004 (-0.6%) 12/29/2018 63 0.677 -2.2 *Denotes significance at 95% confidence level, LSC for AP Spine = 0.022 g/cm2, LSC for Total Hip = 0.027 g/cm2 # Denotes dissimilar scan types or analysis methods Clinical Information Provided by Patient: Is being treated for osteoporosis Has used the following medications: Prolia (i.e. denosumab), Vitamin D Patient maximum height was 65 Menopause Age: 51 No regular weight bearing exercise Drinks caffeinated beverages Onset of menses at age 16 Number of children 3 Impression: The patient has osteoporosis, based on the Right Femoral Neck T-score. No significant bone loss was observed. Discussion: PATIENT UNDER TREATMENT WITH NO SIGNIFICANT BMD LOSS SINCE LAST EXAM. In an untreated patient, BMD typically declines with age. A lack of decline or gain is usually a sign that treatment is efficacious and fracture risk is reduced. It is important to ask patients whether they are taking their medications and to encourage continued and appropriate compliance with their osteoporosis therapies to reduce fracture risk. It is also important to review their risk factors and encourage appropriate calcium and vitamin D intakes, exercise, fall prevention and other lifestyle measures. Follow-Up: Consider a repeat BMD and Vertebral Fracture Assessment (VFA) exam in 2 years or sooner if medically necessary, to reassess this patient's status. Reported by: TAJ on 12/18/2024 8:46:00 AM. Reviewed, dictated and finalized at location A.
--- OUTSIDE RECORDS SUMMARY | 2024-12-18 08:33 | XMS_ITS | Clinical Summary ---
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
--- OUTSIDE RECORDS SUMMARY | 2024-12-18 08:33 | XMS_ITS | Clinical Summary ---
Author Organization [facility] Address [address] [place] [address] Care Team Providers Care Staff Field Engineer Name Role Phone Simón Clay MD Primary Care Provider [phone] Source Comments [facility],non-owned Affiliates and Associated Physician Practices is amultiple site organization consisting of ambulatory clinics and hospital sitesin [place], [place], [place] and [place]. This disclosure is being madepursuant to the Care Everywhere program and may not contain all information available regarding this patient. Last updated 18.[facility] Allergies No known active allergies Medications * [...] patient's age to complete this topic Insurance [employer] Care Teams Staff Field Engineer Relationship Specialty Start Date End Date Simón Clay MD [address] [place] [address] PCP - General Surgery 06/23/17
--- OUTSIDE RECORDS SUMMARY | 2024-12-18 08:33 | XMS_ITS | Data Portability ---
Author Organization [facility] [employer], Main Office Address [address] [place] [address] Assessment No assessment recorded. Plan of Treatment Reminders Order Date Submit Date Provider Last Modified By Organization Details Last Modified Time Details Appointments None recorded. Lab None recorded. Referral None recorded. Procedures None recorded. Surgeries None recorded. Imaging None recorded. Medication Orders metformin ER 500 mg tablet,exte nded release 24 hr 2022 023 [id number], [address] [place], [address], 3 19:54:39 Prolia 60 mg/mL subcutaneou s syringe 2022 023 [id number], [address] [place], [address], 3 17:45:12 Patient TargetsNo targets recorded. Patient InstructionsNo instructions recorded. Reason for Referral None Reported. Results Created Date Observation Date Name Description Value Unit Range Abnormal Flag Note LastModifiedBy Organization Detail LastModifiedTime 02/25/20 22 02/22/2022 bone densi ty No observ ation record ed. [id number] [facility] [address], [place], [address], 10/27/2022 00:54:03 Result Notes None recorded. Problems Name Problem SNOMED Code Status Onset Date Resolution Date Notes Provider Name and Address Organization Details Recorded Time Postmenopausa l osteoporosis 686120480 Active 2021 Not Available [employer] 3 00:48:04 Hypothyroidis m 82451900 Active 2021 Not Available [facility] 3 00:48:04 Osteoporosis 40605048 Active 2018 Not Available [facility] 3 00:48:04 Anh thyroiditis 29364608 Active 2022 Karla Lou MD [address], [place], [address] , [employer] 3 13:36:55 Impaired fasting glycemia 882998804 Active 2022 Karla Lou MD [address], [place], [address] , [employer] 3 13:37:04 Prediabetes 354076189 Active 2022 Karla Lou MD [address], [facility] [address], [place], [address] , [employer] 3 17:36:55 Problem Notes None recorded. Procedures Surgical History None recorded. Imaging Results Imaging Date Name Status LastModified by Organiz ation Details LastModified Time 02/22/2022 bone density completed [id number] [facility] [address], [place], [address], 10/27/2022 00:54:03 Procedure Notes None recorded. Medical [...] Not Available No t Available Fluz[employer] Quad 0531-5539 60 mcg (15 mcg x 4)/0.5 mL [...] 162.56 cm 96.9 [degF] Marcy Eaton Bernard [facility] [employer] [facility] 12/24/2022 09:12:07 Date Recorded Body height Body mass index (BMI) Body weight Body temperature Heart rate Systolic blood pressure Diastolic blood pressure Provider Name and Address Organization Details Last Updated DateTime 3 162.56 cm 25.4 kg/m2 21331.6 7 g 97.9 [degF] 77 /min 123 mm[Hg] 71 mm[Hg] YESSENIA Duff HI [employer] [facility] [employer] [facility] 3 17:25:50 Date Recorded Body mass index (BMI) Body height Oxygen saturation Oxygen saturation in Arterial blood by Pulse oximetry Heart rate Respiratory rate Body temperature Body weight Systolic blood pressure Diastolic blood pressure Provider Name and Address Organization Details Last Updated DateTime 1 26.1 kg/m2 162.56 cm 96 % 96 % 76 /min 14 /min 98.1 [degF] 38335.0 4 g 130 mm[Hg] 82 mm[Hg] Not Available [facility] 3 00:45:48 Date Recorded Body mass index (BMI) Body height Oxygen saturation Oxygen saturation in Arterial blood by Pulse oximetry Heart rate Body temperature Body weight Systolic blood pressure Diastolic blood pressure Provider Name and Address Organization Details Last Updated DateTime 2 25.2 kg/m2 162.56 cm 99 % 99 % 71 /min 98 [degF] 84042.0 8 g 130 mm[Hg] 85 mm[Hg] Not Available [facility] 3 00:45:48 Social History Question Answer Notes LastModified by Organizat ion Details LastModified Time Tobacco Smoking Status Never Smoker Not Available [facility] 10/27/2022 00:42:57 Do You Have An Advance Directive? No [id number].[id number] 026 Information not available 10/27/2022 What Is Your Level Of Alcohol Consumption? None MIGRATION.2504804 026 Information not available 10/27/2022 Are You Blind Or Do You Have Difficulty Seeing? No MIGRATION.9684067 026 Information not available 10/27/2022 What Is Your Level Of Caffeine Consumption? Heavy MIGRATION.9015185 026 Information not available 10/27/2022 In The 14 Days Before Symptom Onset, Have You Had Close Contact With A Laboratory-confirm ed COVID-19 While That Case Was Ill? No MIGRATION.9972563 026 Information not available 10/27/2022 In The 14 Days Before Symptom Onset, Have You Had Close Contact With A Person Who Is Under Investigation For COVID-19 While That Person Was Ill? No MIGRATION.8671405 026 Information not available 10/27/2022 Are You Deaf Or Do You Have Serious Difficulty Hearing? No MIGRATION.9938730 026 Information not available 10/27/2022 What Type Of Diet Are You Following? REGULAR MIGRATION.7611648 026 Information not available 10/27/2022 Which Illicit Or Recreational Drugs Have You Used? No MIGRATION.0874390 026 Information not available 10/27/2022 What Is The Highest Grade Or Level Of School You Have Completed Or The Highest Degree You Have Received? TH04703-6 MIGRATION.0505461 026 Information not available 10/27/2022 Do You Have A Medical Power Of Planer Setup Operator? No MIGRATION.4117929 026 Information not available 10/27/2022 What Is Your Relationship Status? MIGRATION.0390290 026 Information not available 10/27/2022 Do You Use Your Seat Belt Or Car Seat Routinely? Yes MIGRATION.2683663 026 Information not available 10/27/2022 Do You Feel Stressed (tense, Restless, Nervous, Or Anxious, Or Unable To Sleep At Night)? [id number] MIGRATION.3550285 026 Information not available 10/27/2022 Do You Use Any Illicit Or Recreational Drugs? No MIGRATION.0081522 026 Information not available 10/27/2022 Have You Recently Traveled Abroad? No MIGRATION.3199343 026 Information not available 10/27/2022 Do You Have Any Dietary Restrictions? No MIGRATION.8729932 026 Information not available 10/27/2022 Do You Or Have You Ever Used Any Other Forms Of Tobacco Or Nicotine? No MIGRATION.8230940 026 Information not available 10/27/2022 Sex: Female Functional Status Question Answer Note LastModified by Organizat ion Details LastModified Time Do you have difficulty walking or climbing stairs? Yes cane MIGRATION.1848859 026 Information not available 10/27/2022 Do you have transportation difficulties? No MIGRATION.8830442 026 Information not available 10/27/2022 Are you able to walk? YESASSIST MIGRATION.8213997 026 Information not available 10/27/2022 Do you have difficulty doing errands alone? No MIGRATION.6234338 026 Information not available 10/27/2022 Are you able to care for yourself? Yes MIGRATION.2896735 026 Information not available 10/27/2022 Do you have difficulty dressing or bathing? No MIGRATION.8351042 026 Information not available 10/27/2022 What is your exercise level? None MIGRATION.3578889 026 Information not available 10/27/2022 Mental Status Question Answer Note LastModified by Organizat ion Details LastModified Time Do you have difficulty concentrating, remembering or making decisions? No MIGRATION.[id number] 6 Information not available 10/27/2022 Family History Nothing Reported. Medical History Condition Response EYE PROBLEMS Y CANCER: SPECIFY Y AUTOIMMUNE DISEASE Y BLADDER PROBLEMS Y HYPOTHYROIDISM Y Gynecological HistoryNo gynecological history recorded. Obstetrics History GPAL:G 0 P 0 0 0 0 Past Encounters Encounter ID Performer Location Encounter Start Date Encounter Closed Date Diagnosis/Indication Diagnosis SNOMED-CT Code Diagnosis ICD10 Code Diagnosis Note [id number] [facility] [address] [place] [address] 10/27/2020 00:00:00 10/27/2020 11:02:01 [id number] [facility] [address] [place] [address] 04/07/2021 00:00:00 04/07/2021 11:10:10 [id number] [facility] [address] [place] [address] 09/29/2021 00:00:00 09/29/2021 11:48:51 [id number] [facility] [address] [place] [address] 05/07/2022 00:00:00 05/07/2022 12:01:56 [id number] Karla Lou MD [facility] [place] [address] [place] [address] 12/24/2022 09:00:52 12/24/2022 09:14:41 Postmenopausal osteoporosis 523923283 M81.0 Patient tolerated injection without pain or site reaction. She will return in 6 months for repeat injection. Repeat bone density scan in summer 2023. [id number] MD THOMAS [facility] [place] [address] [place] [address] 03/22/2023 16:54:40 03/23/2023 13:30:45 Prediabetes 641873998 R73.03 A1C of 6%- trial on metformin ER 500 mg daily with dinner. Discussed carb counting and how to read food labels. Recommende d patient to utilize the diabetesfo [employer].SmartKem from the ADA website to help with food preparatio n as this presents ideal carb content per meal so this will make carb counting much easier for patient. Recommende d she incorporat e natural insulin occup therapist s such as pears, apples, cinnamon, luh and sweet potatoes to help mobilize her endogenous insulin. Recommende d up to 150 minutes of moderate level activity/e xercise weekly. Anh thyroiditis 21 065813 E06.3 Recommende d a thyroid supplement similiar [...] t at this time. Postmenopa usal osteoporosis 039374270 M81.0 Continue on prolia injections - repeat [...] [place] Maria De Jesus A Ondes [id number] Maria De Jesus Ondes 12/24/2022 1 [employer] (PPO) [id number] 1 Maria De Jesus A Ondes [id number] Maria De Jesus Ondes 03/22/2023 1 [employer] (MEDICARE REPLACEMENT PPO) [phone] 1 Maria De Jesus A Ondes [id number] Maria De Jesus Ondes Notes Date Note Type Note Provider Name and Address Organization Details Recorded Time 12/24/2022 text/html 67 yo female com es in for prolia injection in management of postmenopausal osteoporosis. Karla Lou MD [address] [place] [address], [address], [place] [facility] [place] [employer] [facility] 12/24/2022 14:03:48 03/22/2023 text/html 67 yo female [...] 6%glucose 98 mg/dL Karla Lou MD [address] [facility] [facility] [address], [place], [address], [place] [employer] [facility] 03/22/2023 19:58:23 OBGyn Episode No OBEpisode recorded.
== END 2024-12-18 08:21 | disposition home or self-care (01) ==
LOC: CHSIMG 08:22
PROVIDERS: PCP Nurse Practitioner Family; Visit Provider Internal Medicine
DX: Z78.0 Asymptomatic menopausal state (principal); M81.0 Age-related osteoporosis without current pathological fracture; M85.89 Other specified disorders of bone density and structure, multiple sites
CPT/HCPCS: 77080

== ENCOUNTER 2025-06-18 15:14 | Outpatient (RCR) | payer MEDICARE, SELFPAY ==
--- NOTE | 2025-06-18 16:16 | PTOPDC ---
Assessment and note entered by Beulah Jaramillo DPT Evaluation Information Assessment Status Discharge Diagnosis R shoulder pain Other ICD-10 Condition Codes ( Z42.211A PT) Onset 02/27/25 Subjective Information Patient reports she has improved since start of PT . She reports lifting her arm has gotten easier and she has less pain. She reports she has been able to return to sleeping in bed without increase in pain. She reports she feels as though she has reached as good as she is going to get. Reported Pain Level Pain Score 2: Self Report Pain Score 0: Self Report Assessment PT Clinical Summary Mrs. Shields attended 32 visits of skilled PT with progress towards goals. Patient has decreased pain and has improved ROM and strength but continues to lack full strength and ROM at this time. She has been able to return to caring for her and sleeping without difficulty. Patient has plateaued with progressed at this time. She is independent with HEP and is appropriate for DC. Plan of Care PT Services Indicated No
== END 2025-06-18 20:00 | disposition home or self-care (01) ==
LOC: CHSPT 15:14
PROVIDERS: Visit Provider Orthopaedic Surgery
DX: S42.211A Unspecified displaced fracture of surgical neck of right humerus, initial encounter for closed fracture (principal)
CPT/HCPCS: 97110; 97112; 97140

== ENCOUNTER 2025-08-06 14:24 | Outpatient (CLI) | payer MEDICARE, SELFPAY ==
--- OUTSIDE RECORDS SUMMARY | 2025-05-09 07:00 | XMS_ITS ---
Author Organization [facility] Address [address] [place], [place] [id number] Care Team Providers Care Senior Instrumentation Engineer Name Role Phone SOLO PETERSON Unavailable [phone] Charmaine Jorgensen Unavailable Unavailable Allergies No Known Allergies REASON FOR VISIT *General care Medications Medication SIG (Take, Route, Frequency, Duration) Notes Start Date End Date Status Calcium Active Levothyroxine Sodium Active Vitamin D Active metFORMIN HCl Active Clotrimazole 1 % Cream 1 application Ext ernally Once a day; Duration: 30 days 05/09/2025 05/04/2026 Active Social History Tobacco Use: Social History Observation Description Date Details (start date - stop date) Never Smoker NA - NA Social History Tobacco Use: Social Info Question Answer Notes Tobacco Control (Standard) Tobacco use: Nonsmoker Additional Details Category Social Info Options Details Drugs/Alcohol: Do you drink alcohol? Yes, Socially Encounters Encounter Location Date Provider Diagnosis [address] [phone] 05/09/2025 SOLO PETERSON Tinea unguium B35.1 ; Atherosclerosis of [place] arteries of extremities with intermittent claudication, bilateral legs I70.213 ; Pain in right foot M79.671 and Pain in left foot M79.672 Assessments Encounter Date Diagnosis (ICD Code) Assessment Notes Treatment Notes Treatment Clinical Notes Section Notes 05/09/2025 Tinea unguium (ICD-10 - B35.1) NAIL DEBRIDEMENT: Nails 1-5 Bilateral were debrided extensively with nail nippers and emery board, reducing length and girth to pink healthy tissue with any subungual debris and necrotic tissue removed 05/09/2025 Atherosclerosis of [place] arteries of extremities with intermittent claudication, bilateral legs (ICD-10 - I70.213) Patient educated on risks and aggravating factors of PVD, including conservative treatment options such as a diet and exercise regimen to aid in slowing progression of vascular disease. Check and protect LE bilateral daily. Call if any changes or concerns. 05/09/2025 Pain in right foot (ICD-10 - M79.671) 05/09/2025 Pain in left foot (ICD-10 - M79.672) Plan Of Treatment Medication Medication Name Sig Start Date Stop Date Notes Clotrimazole 1 % Cream 1 application Ext ernally Once a day; Duration: 30 days 05/09/2025 05/04/2026 Treatment Notes Assessment Notes Tinea unguium NAIL DEBRIDEMENT: Na ils 1-5 Bilateral were debrided extensively with nail nippers and emery board, reducing length and girth to pink healthy tissue with any subungual debris and necrotic tissue removed Atherosclerosis of [place] ar teries of extremities with intermittent claudication, bilateral legs Patient educated on risks and aggravatin g factors of PVD, including conservative treatment options such as a diet and exercise regimen to aid in slowing progression of vascular disease. Check and protect LE bilateral daily. Call if any changes or concerns. Next Appt Details Follow Up: 9 weeks Julio Cesar SOMMERS n: Provider Name:SOLO LOPEZ, 09/12/2025 01:10:00 PM, [address] [place] [address], [phone], History and Physical Notes * HPI (History of Present Illness) Category Sub-Category Detail Notes Category Not es HPI General care Patient presents to the office for at risk foot care. Patient states that their nails are thickened, elongated and painful. Patient states that it is aggravated by shoe gear. Onset is gradual. Patient denies being diabetic., Patient denies taking blood thinners., Date last seen by Dr. Jorgensen was 01/2025., Initials nd Examination Category Sub-Category Detail Notes Category Not es Constitutional Constitutional The patient is a wake, alert, well developed, well groomed and well nourished. Dermatologic Skin findings: bilateral, Skin is thin, atrophic and lacking pedal hair. Nail pathology: Nails 1-5 bilateral are elongated, thick, discolored, and dystrophic with subungual debris. They are painful to palpation Musculoskeletal Muscle Strength Muscle strength is 5/5 in regards to dorsiflexion, plantarflexion, inversion, and eversion in bilateral lower extremities. Neurologic Mulders sign: bilateral, negative Gross sensation Gross sensation is i ntact to light touch. Vascular Dorsalis pedis pulse: bilateral, 2/4 Posterior tibial pulse: bilaterally, 2/4 Progress Notes * Maria De Jesus SHIELDSDOB: [birth year] (69 yo F)Acc No.[id number]:05/09/2025 Progress Notes Patient: Maria De Jesus Joshi Provider: Maverick PETERSON :1955 A ge:69 Y S ex:Female Date:05/09/2025 Address:[address] [place], [place] [id number] Subjective: * Chief Complaints: * * General care * HPI: H PI: General care P atient presents to the office for at risk foot care. Patient states that their nails are thickened, elongated and painful. Patient states that it is aggravated by shoe gear. Onset is gradual. Patient denies being diabetic., Patient denies taking blood thinners., Date last seen by Dr. Jorgensen was 01/2025., Initials nd. * ROS: G eneral / Constitutional: Patient denies f ever, fatigue, chills. P atient complains of p ain. M usculoskeletal: Patient denies b roken ankle. P eripheral Vascular: Patient complains of c old extremities, painful extremities. S kin: Patient denies h debra, keloid scar. P atient complains of f ungal nails, discoloration. N eurologic: Patient denies p aralysis, loss of use of extremity. ? * Medical History: Arthritis Thyroid Disease Medical History Verified * Surgical History: Denies Past Surgical History. Surgical History verified. * Hospitalization/Major Diagno stic Procedure: Denies Past Hospitalization. Hospitalization Verified. * Family History: N o Family History documented.. F amily History Verified.. * Social History: T obacco Use: T obacco Control (Standard) T obacco use: N onsmoker. D rugs/Alcohol: D o you drink alcohol?: Yes, Socially. Social History Verified. * Medications: T akingmetFORMIN HCl Levothyroxine Sodium Vitamin D Calcium Medication List reviewed and reconciled with the patientTaking metFORMIN HCl Taking Levothyroxine Sodium Taking Vitamin D Taking Calcium Medication List reviewed and reconciled with the patient * Allergies: N .K.D.A.yesAllergies Verified. Objective: * Examination: C onstitutional: Constitutional T he patient is awake, alert, well developed, well groomed and well nourished.. D ermatologic: Skin findings: b ilateral, Skin is thin, atrophic and lacking pedal hair.. Nail pathology: N ails 1-5 bilateral are elongated, thick, discolored, and dystrophic with subungual debris. They are painful to palpation. ? M usculoskeletal: Muscle Strength M uscle strength is 5/5 in regards to dorsiflexion, plantarflexion, inversion, and eversion in bilateral lower extremities.. ? N eurologic: Mulders sign: b ilateral, negative. Gross sensation G ross sensation is intact to light touch..? V ascular: Dorsalis pedis pulse: b ilateral, 2/4. Posterior tibial pulse: b ilaterally, 2/4. Assessment: * Assessment: 1. T inea unguium - B35.1 (Primary) 2 . A therosclerosis of [place] arteries of extremities with intermittent claudication, bilateral legs - I70.213 3 . P ain in right foot - M79.671 4 . P ain in left foot - M79.672 Plan: * Treatment: 2. A therosclerosis of [place] arteries of extremities with intermittent claudication, bilateral legs Notes: Patient educated on risks and aggravating factors of PVD, including conservative treatment options such as a diet and exercise regimen to aid in slowing progression of vascular disease. Check and protect LE bilateral daily. Call if any changes or concerns. * Follow Up: 9 weeks Billing Information: * Visit Code: 84925 Office Visit, New Pt., Level 3. * Electronic signature of JOSE PETERSON DPM on 08/06/2025 at 04:40 PM SHEARER OPERATOR Sign off status: Pending * Provider: Maverick PETERSON Date: 0 05/09/2025 Generated for Jose casas/Booker/Ann-Marieitting on: 1 10/07/2024 04:40 PM SHEARER OPERATOR
--- OUTSIDE RECORDS SUMMARY | 2025-07-11 07:10 | XMS_ITS ---
Author Organization [facility] Address [address] [place], [place] [id number] Care Team Providers Care Special Forces Medical Sergeant Name Role Phone SOLO PETERSON Unavailable [phone] Charmiane Jorgensen Unavailable Unavailable Allergies No Known Allergies REASON FOR VISIT *General care Medications Medication SIG (Take, Route, Frequency, Duration) Notes Start Date End Date Status Levothyroxine Sodium Active Vitamin D Active metFORMIN HCl Active Calcium Active Clotrimazole 1 % Cream 1 application Ext ernally Once a day; Duration: 30 days 07/11/2025 07/06/2026 Active Encounters Encounter Location Date Provider Diagnosis [address] [phone] 07/11/2025 SOLO PETERSON Tinea unguium B35.1 ; Atherosclerosis of [place] arteries of extremities with intermittent claudication, bilateral legs I70.213 ; Pain in right foot M79.671 and Pain in left foot M79.672 Assessments Encounter Date Diagnosis (ICD Code) Assessment Notes Treatment Notes Treatment Clinical Notes Section Notes 07/11/2025 Tinea unguium (ICD-10 - B35.1) NAIL DEBRIDEMENT: Nails 1-5 Bilateral were debrided extensively with nail nippers and emery board, reducing length and girth to pink healthy tissue with any subungual debris and necrotic tissue removed 07/11/2025 Atherosclerosis of [place] arteries of extremities with intermittent claudication, bilateral legs (ICD-10 - I70.213) Patient educated on risks and aggravating factors of PVD, including conservative treatment options such as a diet and exercise regimen to aid in slowing progression of vascular disease. Check and protect LE bilateral daily. Call if any changes or concerns. 07/11/2025 Pain in right foot (ICD-10 - M79.671) 07/11/2025 Pain in left foot (ICD-10 - M79.672) Plan Of Treatment Medication Medication Name Sig Start Date Stop Date Notes Clotrimazole 1 % Cream 1 application Ext ernally Once a day; Duration: 30 days 07/11/2025 07/06/2026 Treatment Notes Assessment Notes Tinea unguium NAIL DEBRIDEMENT: Na ils 1-5 Bilateral were debrided extensively with nail nippers and emery board, reducing length and girth to pink healthy tissue with any subungual debris and necrotic tissue removed Atherosclerosis of [place] ar teries of extremities with intermittent claudication, bilateral legs Patient educated on risks and aggravatin g factors of PVD, including conservative treatment options such as a diet and exercise regimen to aid in slowing progression of vascular disease. Check and protect LE bilateral daily. Call if any changes or concerns. Next Appt Details Follow Up: 9 weeks TOOTIE, Julio Cesar n: Provider Name:SOLO LOPEZ, 09/12/2025 01:10:00 PM, [address] [place] [address], [phone], History and Physical Notes * HPI (History [...] De Jesus SHIELDSDOB: 6 (69 yo F)Acc No.[id number]:07/11/2025 Patient: Maria De Jesus Joshi Provider: Maverick PETERSON :1955 A ge:69 Y S ex:Female Date:07/11/2025 Address:[address] [place], [place] [id number] Subjective: * Chief Complaints: * * General [...] F amily History Verified.. * Social History: Social History Verified. No Social History documented. * Medications: T akingmetFORMIN HCl Levothyroxine Sodium Vitamin D Calcium Clotrimazole 1 % Cream 1 application Externally Once a day , stop date 05/04/2026Medication List reviewed and reconciled with the patientTaking metFORMIN HCl Taking Levothyroxine Sodium Taking Vitamin D Taking Calcium Taking Clotrimazole 1 % Cream 1 application Externally Once a day , stop date 05/04/2026Medication List reviewed and reconciled with the patient [...] ilaterally, 2/4. Assessment: * Assessment: 1. T fideliaa unguium - B35.1 (Primary) 2 . A therosclerosis of [place] arteries of extremities with intermittent claudication, bilateral legs - I70.213 3 . P ain in right foot - M79.671 4 . P ain in left foot - M79.672 Plan: * Treatment: 2. A therosclerosis of [place] arteries of extremities with intermittent claudication, bilateral legs Notes: Patient educated on risks and aggravating factors of PVD, including conservative treatment options such as a diet and exercise regimen to aid in slowing progression of vascular disease. Check and protect LE bilateral daily. Call if any changes or concerns. * Follow Up: 9 weeks Billing Information: * Visit Code: 18583 Office Visit, Est Pt., Level 3. * Electronic signature of JOSE PETERSON DPM on 08/06/2025 at 04:39 PM SNUFF DRIER Sign off status: Pending * Provider: Maverick PETERSON Date: 09/10/2024 Generated for Jose casas/Booker/Ann-Marieitting on: 10/07/2024 04:39 PM SNUFF DRIER
--- NOTE | ~2025-08-06 | MM_ITS ---
EXAMINATION: MM screening dez BI w ruby HISTORY: Screening. TECHNIQUE: Craniocaudal and mediolateral oblique 3-D tomosynthesis images were obtained and synthetic 2-D images were generated. CAD analysis was submitted and interpreted. COMPARISON: 2023, 2022, and 2021. BREAST PARENCHYMAL COMPOSITION: Dense: The breasts are heterogeneously dense FINDINGS: The exam is suboptimal because of difficulty with positioning the patient. No suspicious masses are seen. There are no suspicious calcifications. No unexplained architectural distortion is seen. There are no skin or nipple abnormalities identified. There is no adenopathy seen on the images submitted. IMPRESSION: No mammographic evidence to suggest malignancy is seen. The patient may return to screening mammography as per ACR guidelines. BI-RADS 1 - Negative. Reviewed, dictated and finalized at location [facility]. [facility]
--- OUTSIDE RECORDS SUMMARY | 2025-08-06 16:40 | XMS_ITS | Clinical Summary ---
Author Organization [facility] Address [address] [place] [address] Care Team Providers Care Refining Engineer Name Role Phone Unknown, Notinfile Primary Care Provider Unavail able Allergies No known active allergies Medications metFORMIN XR (GLUCOPHAGE XR) 500 mg 24 hr tablet TAKE 1 TABLET BY MOUTH EVERY DAY AT DINNER FOR 90 DAYS Active levothyroxine (SYNTHROID) 25 mcg tablet Take 1 tablet (25 mcg total) by mouth every morning Active diclofenac DR (VOLTAREN) 50 mg EC tablet Take 1 tablet (50 mg total) by mouth 3 (three) times a day 02/26/2019 Active denosumab (Prolia) 60 mg/mL syringe inject 60 mg SQ once every 6 months 12/24/2022 Active CALCIUM CARBONATE-VITAM IN D3 ORAL Take 2 tablets by mouth daily Active Active Problems Problem Noted Date Diagnosed Date Closed displaced fracture of surgical neck of ri ght humerus 03/11/2025 Closed fracture of right proximal humerus 2024 Prediabetes 03/22/2023 Anh thyroiditis 12/02/2022 Impaired fasting glucose 12/02/2022 Hypothyroidism 05/25/2022 Closed traumatic nondisplace d fracture of left patella with routine healing 03/07/2019 Postmenopausal osteoporosis 02/20/2019 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 Bilateral leg weakness 06/23/2017 Gait difficulty 06/23/2017 Spastic gait 06/23/2017 Encounters Date Type Department Care Team Description 05/15/2025 10:30 AM CDT Office Visit [facility] Medicine Orthopaedic Surgery [facility] [address] [place] [address] Tyree Curran MD Closed displaced fracture of surgical neck of right humerus, unspecified fracture morphology, initial encounter (Primary Dx) 05/15/2025 10:00 AM CDT - 05/15/2025 11:59 PM CDT Hospital Encounter [facility] [address] [facility] [address] [place] [address] Closed displaced fracture of surgical neck of right humerus, unspecified fracture morphology, initial encounter Discharge Disposition: Discharge to home or self care from Last 3 Months Social History Tobacco Use Types Packs/Day Years Used Date Smoking Tobacco: Never Assessed Personal Safety Answer Date Recorded Have you ever been in or are you currently in a harmful physical or emotional relationship or is someone making you feel afraid or unsafe? 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 Gender Identity Not on file Sexual Orientation Not on file Last Filed Vital Signs Vital Sign Reading Time Taken Comments Blood Pressure 153/73 02/11/2025 10:47 PM CDT Pulse 76 02/11/2025 10:47 PM CDT Temperature 37 C (98.6 F) 02/11/2025 10:47 PM CDT Respiratory Rate 18 02/11/2025 10:47 PM CDT Oxygen Saturation 98% 02/11/2025 10:47 PM CDT Inhaled Oxygen Concentration - - Weight 68 kg (150 lb) 02/11/2025 10:47 PM CDT Height 160 cm (5' 3) 02/11/2025 10:47 PM CDT Body Mass Index 26.57 02/11/2025 10:47 PM CDT Plan of Treatment Health Maintenance Due Date Last Done Comments Breast Cancer Screening-Mammogram 1955 Colon Cancer Screening-Colonoscopy 1955 Depression Screening 1955 Fall Risk Assessment 1955 Hepatitis C Screening 1955 Osteoporosis Screening-Bone Density Scan 1955 Hepatitis B Screening 1974 Pneumococcal vaccine 65+ (1 of 1 - PCV) 2006 Zoster Vaccine (1 of 2) 2006 Well Visit 65+ 2021 Covid-19 Vaccine (2024-2 6 season) 2025 06/13/2024, 09/14/2023, 06/20/2022, Additional history exists Influenza Vaccine (#1) 2025 06/27/2024, 2020 DTaP/Tdap/Td Vaccine (3 - Td or Tdap) 04/07/2034 04/07/2024, 06/29/2021 Procedures Procedure Name Priority Date/Time Associated Diagnosis Comments XR SHOULDER RIGHT 2 OR MORE VIEWS Routine 05/15/2025 11:11 AM CDT Closed displaced fracture of surgical neck of right humerus, unspecified fracture morphology, initial encounter from Last 3 Months Results * XR Shoulder Right 2 or More Views (05/15/2025 11:11 AM CDT) Anatomical Region Laterality Modality Upper Extremities, Shoulder Right Comp uted Radiography 05/15/2025 11:2 3 AM CDT Impressions 05/15/2025 11:23 AM CDT 1. Healing comminuted mildly displaced right proximal humerus fracture in unchanged alignment. Electronically signed by: Tho Munroe MD Narrative 05/15/2025 11:23 AM CDT EXAMINATION: XR SHOULDER RIGHT 2 OR MORE VIEWS HISTORY: Fracture. FINDINGS: Comparison to 03/13/2025. Healing comminuted mildly displaced fracture prominently involving the surgical neck extending into the tuberosities. Alignment is unchanged. Mild glenohumeral and moderate acromioclavicular osteoarthritis. No new fractures.. Procedure Note Tho Munroe MD - 05/15/2025 EXAMINATION: XR SHOULDER RIGHT 2 OR MORE VIEWS HISTORY: Fracture. FINDINGS: Comparison to 03/13/2025. Healing comminuted mildly displaced fracture prominently involving the surgical neck extending into the tuberosities. Alignment is unchanged. Mild glenohumeral and moderate acromioclavicular osteoarthritis. No new fractures.. IMPRESSION: 1. Healing comminuted mildly displaced right proximal humerus fracture in unchanged alignment. 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 Please contact infection prevention for instructions on obtaining surveillance cultures. 02/12/2025 02/12/2025 Insurance [employer] T MEDICARE Care Teams Refining Engineer Relationship Specialty Start Date End Date Unknown, Notinfile PCP - General 03/03/17
--- OUTSIDE RECORDS SUMMARY | 2025-08-06 16:40 | XMS_ITS | Clinical Summary ---
Author Organization [facility] Address [address] [place] [address] Care Team Providers Care Assistant Golf Course Superintendent Name Role Phone Simón Clay MD Primary Care Provider [phone] Source Comments [facility],non-owned Affiliates and Associated Physician Practices is amultiple site organization consisting of ambulatory clinics and hospital sitesin [place], [place], [place] and [place]. This disclosure is being madepursuant to the Care Everywhere program and may not contain all information available regarding this patient. Last updated 18.[facility] Allergies No known active allergies Medications * Be aware that medications may not be up to date on this document. Alwaysverify current medications with the patient. Multiple Vitamins-Minera ls (MACULAR VITAMIN BENEFIT) TABSIndications :Gait difficulty,Bila teral leg weakness,ALD (adrenoleukodys trophy) (HCC),Spastic gait Take 1 tablet by mouth once daily Active CALCIUM-VITAMIN D POIndications:G ait difficulty,Bila teral leg weakness,ALD (adrenoleukodys trophy) (HCC),Spastic gait Take 2 tablets by mouth once daily Active Multiple Vitamins-Minera ls (MULTIVITAMIN ADULT PO)Indications: Gait difficulty,Bila teral leg weakness,ALD (adrenoleukodys trophy) (HCC),Spastic gait Take 1 tablet by mouth [...] Years Used Date Smoking Tobacco: Former Cigarettes 0 Q uit: 08/29/1996 Smokeless Tobacco: Never Alcohol [...] 10:21 AM CDT Height 165.1 cm (5' 5) 01/25/2018 10:21 AM CDT Body Mass Index [...] 2006 ZOSTER VACCINE (1 of 2) 2006 DEPRESSION SCREENING 08/29/2024 COVID-19 VACCINE ( - 2024-2 6 season) 2025 INFLUENZA VACCINE (#1) 2025 Respiratory Syncytial Virus (RSV) Vaccine Pt: [...] patient's age to complete this topic Insurance SupportLocal Care Teams Assistant Golf Course Superintendent Relationship Specialty Start Date End Date Simón Clay MD [address] [place] [address] PCP - General Surgery 06/23/17
--- OUTSIDE RECORDS SUMMARY | 2025-08-06 16:40 | XMS_ITS | Patient Health Record ---
Author Organization [facility] Address [address] [place], [place] [id number] Care Team Providers Care Ladle Repairman Name Role Phone KRISTEN SOLO Unavailable [phone] Charmaine Jorgensen Unavailable Unavailable Allergies No Known Allergies Reason For Referral No Information Medications Medication SIG (Take, Route, Frequency, Duration) Notes Start Date End Date Status Levothyroxine Sodium Active Vitamin D Active metFORMIN HCl Active Calcium Active Clotrimazole 1 % Cream 1 application Ext ernally Once a day; Duration: 30 days 07/11/2025 07/06/2026 Active Social History Tobacco Use: Social History Observation Description Date Details (start date - stop date) Never Smoker NA - NA Social History Tobacco Use: Social Info Question Answer Notes Tobacco Control (Standard) Tobacco use: Nonsmoker Additional Details Category Social Info Options Details Drugs/Alcohol: Do you drink alcohol? Yes, Socially Encounters Encounter Location Date Provider Diagnosis [address] [id number] 05/09/2025 SOLO harrisum B35.1 ; Atherosclerosis [place] arteries of extremities with intermittent claudication, bilateral legs I70.213 ; Pain in right foot M79.671 and Pain in left foot M79.[address] [id number] 07/11/2025 SOLO PETERSON Tinea unguium B35.1 ; Atherosclerosis [place] arteries of extremities with intermittent claudication, bilateral [...] and necrotic tissue removed 05/09/2025 Atherosclerosis [place] of extremities with intermittent claudication, bilateral legs (ICD-10 - I70.213) Patient educated on risks and aggravating factors of PVD, including conservative treatment options such as a diet and exercise regimen to aid in slowing progression of vascular disease. Check and protect LE bilateral daily. Call if any changes or concerns. 07/11/2025 Tinea unguium (ICD-10 - B35.1) NAIL DEBRIDEMENT: Nails 1-5 Bilateral were debrided extensively with nail nippers and emery board, reducing length and girth to pink healthy tissue with any subungual debris and necrotic tissue removed 07/11/2025 Atherosclerosis [place] arteries of extremities with intermittent claudication, bilateral legs (ICD-10 - I70.213) Patient educated on risks and aggravating factors of PVD, including conservative treatment options such as a diet and exercise regimen to aid in slowing progression of vascular disease. Check and protect LE bilateral daily. Call if any changes or concerns. 07/11/2025 Pain in right foot (ICD-10 - M79.671) 05/09/2025 Pain in right foot (ICD-10 - M79.671) 05/09/2025 Pain in left foot (ICD-10 - M79.672) 07/11/2025 Pain in left foot (ICD-10 - M79.672) Plan Of Treatment Next Appt Details Provider Name:SOLO LOPEZ, 09/12/2025 01:10:00 PM, [address] [place] [address], [id number], Insurance Providers Payer Name Payer Address Payer Phone Subscriber Number Group Number Insured Name Patient Relationship to Insured Coverage Start Date Coverage End Date [employer] [address] [place] [phone] [id number] Maria De Jesus Shields Self - patient is the insured Medical (General) History Medical History History ICD Code Arthritis Thyroid Disease
--- OUTSIDE RECORDS SUMMARY | 2025-08-06 16:40 | XMS_ITS | Clinical Summary ---
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 Gender Identity Not on file Sexual Orientation Not on file Last Filed Vital Signs Vital Sign Reading Time Taken Comments Blood Pressure - - Pulse - - Temperature - - Respiratory Rate - - Oxygen Saturation - - Inhaled Oxygen Concentration - - Weight 67.6 kg (149 lb) 03/07/2019 10:13 AM CDT Height 162.6 cm (5' 4) 03/07/2019 10:13 AM CDT Body Mass Index [...] Scan (General) 2021 COVID-19 Vaccine ( - 2024-2 6 season) 2025 Influenza Adult (#1) 2025 RSV Immunization or 60+ Years (1 - 1-dose 75+ series) 2031 Hepatitis A Vaccines Aged Out No long er eligible based on patient's age to complete this topic Meningococcal B Vaccine Aged Out No l onger eligible based on patient's age to complete this topic Meningococcal Vaccine Aged Out No raheem mary eligible based on patient's age to complete this topic RSV Immunizations Under 20 Months Aged Out No longer eligible based on patient's age to complete this topic Insurance GENERIC - [employer] Care Teams Pediatric Pathologist Relationship Specialty Start Date End Date Liu Bui MD [address] [place] [address] PCP - General FAMILY PRACTICE 03/06/19
== END 2025-08-06 14:25 | disposition home or self-care (01) ==
PROVIDERS: PCP Nurse Practitioner Family; Visit Provider Nurse Practitioner Family
DX: Z12.31 Encounter for screening mammogram for malignant neoplasm of breast (principal)
CPT/HCPCS: 77063; 77067